=== PATIENT | male | born 1940 | race Caucasian/White ===

== ENCOUNTER 2016-03-12 08:46 | Inpatient (IN) | payer OTHER ==
[2016-03-12] MEDS ORDERED: ALBUTEROL SO4 2.5/IPRATROPIUM 0.5 INH SOL 3 ML VIAL.NEB. NEB ONE (08:49)
[2016-03-12] MEDS: ALBUTEROL SO4 2.5/IPRATROPIUM 0.5 INH SOL 3 ML VIAL.NEB. NEB SCH ×4 (08:50→09:35)
--- NOTE | 2016-03-12 08:57 | PDOC ---
History of Present Illness - General Chief Complaint: Shortness of Breath Stated Complaint: SOB Time Seen by Provider: 03/12/16 08:49 History Source: Patient, Family Exam Limitations: No Limitations - History of Present Illness Initial Comments: CHIEF COMPLAINT: 75 y/o afebrile male with PMH HTN, HLD, CHF, asthma s/p pacemaker and defibrillator c/o increased dyspnea on exertion, orthopnea and LE swelling for the past 1 week. HISTORY OF PRESENT ILLNESS: The patient states that his legs have become more swollen over the past 1 week. Last saturday, his Strip Feeder increased his Lasix dose but it doesn't seem to be helping. He states last night he couldn't sleep unless he sat up. He denies f/c, n/v/d, LINARES, CP, abd pain, back pain, hematuria, dysuria. Vital signs on arrival are within normal limits. REVIEW OF SYSTEMS: GENERAL/CONSTITUTIONAL: No fever/chills. No weakness. No weight change. HEAD, EYES, EARS, NOSE AND THROAT: No change in vision. No ear pain or discharge. No sore throat. CARDIOVASCULAR: No chest pain. +SOB and orthopnea RESPIRATORY: No cough, wheezing, or hemoptysis. GASTROINTESTINAL: See history of present illness. GENITOURINARY: No dysuria, frequency, or change in urination. MUSCULOSKELETAL: +LE swelling. No neck or back pain. SKIN: No rash or easy bruising. NEUROLOGIC: No headache, vertigo, loss of consciousness, or loss of sensation. PSYCHIATRIC: No depression or anxiety. ENDOCRINE: No increased thirst. No abnormal weight change. HEMATOLOGIC/LYMPHATIC: No anemia, easy bleeding, or history of blood clots. ALLERGIC/IMMUNOLOGIC: No hives or skin allergy. No latex allergy. PHYSICAL EXAM: GENERAL: The patient is awake, alert, and fully oriented, in moderate respiratory distress, sitting up in bed, speaking 4-5 words per breath. HEAD: Normal with no signs of trauma. ENT: Pupils equal, round and reactive to light, extraocular movements intact, sclera anicteric, conjunctiva clear. Neck supple. LUNGS: Diffuse expiratory wheezing with crackles in b/l bases. Accessory muscle use. CV: RRR, S1/S2, no MRG. Cap refill < 2 sec. ABDOMEN: Soft, non-distended, non-tender even to deep palpation, no hepatomegaly or splenomegaly, no masses. EXTREMITIES: Normal range of motion. 2+ brawny pitting edema b/l LEs up to knees. NEUROLOGICAL: Normal speech, normal gait. CN II-XII grossly intact. PSYCH: Normal mood, normal affect. SKIN: Warm, dry, normal turgor, no rashes or lesions noted. Past History - Past Medical History Allergies/Adverse Reactions: Allergies Allergy/AdvReac Type Severity Reaction Status Date / Time No Known Allergies Allergy Verified 03/12/16 09:01 Home Medications: Ambulatory Orders Amiodarone HCl [Cordarone -] 200 mg PO DAILY 06/11/15 Atorvastatin Ca [Lipitor -] 20 mg PO ASDIR 06/11/15 Carvedilol 3.125 mg PO DAILY 06/11/15 Digoxin [Lanoxin -] 0.125 mg PO DAILY 06/11/15 Fluticasone Propionate [Flovent Diskus] 100 mcg IH DAILY 06/11/15 Furosemide 40 mg PO DAILY 06/11/15 Warfarin Sodium [Coumadin] 2 mg PO ASDIR 06/11/15 Aspirin [ASA -] 81 mg PO DAILY 07/04/15 Albuterol Sulfate Inhaler - [Ventolin Hfa Inhaler -] 1 - 2 inh PO QID 03/12/16 Famotidine 20 mg PO DAILY 03/12/16 Asthma: Yes Cardiac Disorders: Yes (CHF,PACEMAKER/DEFIBRILLATOR) HTN: Yes Hypercholesterolemia: Yes - Surgical History Cardiac Surgery: Yes (PACEMAKER/DEFIBRILLATOR INSERTION) - Psycho/Social/Smoking Cessation Hx Suicidal Ideation: No Smoking History: Never smoked Have you smoked in the past 12 months: No Hx Alcohol Use: No Drug/Substance Use Hx: No Substance Use Type: None Heart Score/ECG Review - ECG Intrepretation Comment:: Twelve-lead EKG was performed and reviewed by Dr. Velázquez. Demand pacemaker. Undetermined rhythm Impression: Abnormal twelve-lead EKG ED Treatment Course - LABORATORY CBC & Chemistry Diagram: 03/12/16 08:53 03/12/16 08:53 - RADIOLOGY Radiology Studies Ordered: Category Date Time Status CHEST X-RAY PORTABLE* [RAD] Stat Radiology 03/12/16 08:55 Ordered Medical Decision Making - Medical Decision Making A/P: 75 y/o male with CHF exacerbation and asthma. Plan is as follows: 1. EKG 2. CXR 3. Labs 4. Duoneb CXR IMRPESSION: SLight improvement at the lung bases; otherwise stable. Pt was seen in the ER by Dr. Kilpatrick who has already put in orders for lasix. Will admit to [facility]. Dr. Vincent returned call and accepts admission. WIll admit to tele Patient and family aware *DC/Admit/Observation/Transfer Diagnosis at time of Disposition: CHF exacerbation, Orthopnea, Asthma, Elevated liver enzymes, Elevated troponin - Discharge Dispostion Admit: Yes - Referrals Referrals: John Sahu MD [Primary Care Provider] -
[2016-03-12 09:13] LABS: BASOPHIL 0.5 % (0-2.0); EOSINOPHIL 0.2 % (0-4.5); MCH 28.7 pg (25.7-33.7); MCHC 32.3 g/dl (32.0-35.9); MEAN CELL VOLUME 88.8 fl (80-96); MEAN PLT VOLUME 10.1 fl (7.5-11.1); NEUTROPHILS 60.7 % (42.8-82.8); PLATELET COUNT 153 K/MM3 (134-434); RDW 18.7 % (11.9-15.9); WHITE BLOOD COUNT 8.3 K/mm3 (4.0-10.0)
[2016-03-12 09:32] LABS: ALBUMIN 3.5 g/dl (3.4-5.0); BILIRUBIN,TOTAL 1.5 mg/dL (0.2-1.0); CALCIUM 8.9 mg/dL (8.5-10.1); CREATININE 1.3 mg/dL (0.7-1.3); TOT PROT 7.8 g/dl (6.4-8.2)
[2016-03-12 09:44] LABS: DIGOXIN LEVEL 0.5888 ng/ml (0.8-2.0); TROPONIN I 0.33 ng/ml (0.00-0.05)
[2016-03-12] MEDS ORDERED: FUROSEMIDE 40 MG/4 ML INJECTABLE VIAL IVPUSH ONE (09:50)
--- NOTE | 2016-03-12 09:54 | PN ---
Progress Note (short form) - Note Progress Note: Cardiology Consult Dictated Acute on chronic systolic CHF, underlying non-ischemic CM, s/p ICD Severe s/p TAVR Chronic AF on coumadin Mitral regurgitation Plan: Admit to tele for decompensated systolic CHF. Echo. Serial cardiac enzymes. Lasix 40mg IV daily. Strict Is/Os, daily weights. Maintain INR 2-3.
[2016-03-12] MEDS ORDERED: CARVEDILOL 3.125 MG TABLET (FP) ONE (10:06)
[2016-03-12] MEDS ORDERED: DIGOXIN 0.125 MG TABLET (FP) ONE (10:06)
[2016-03-12] MEDS ORDERED: ASPIRIN 81 MG CHEWABLE TABLETS ONE (10:06)
[2016-03-12] MEDS ORDERED: FUROSEMIDE 40 MG/4 ML INJECTABLE VIAL ONE (10:07)
[2016-03-12] MEDS ORDERED: AMIODARONE HCL 200 MG TABLET (FP) ONE (10:07)
[2016-03-12] MEDS: AMIODARONE HCL 200 MG TABLET (FP) PO SCH (10:09)
[2016-03-12] MEDS: ASPIRIN 81 MG CHEWABLE TABLETS PO SCH (10:09)
[2016-03-12] MEDS: CARVEDILOL 3.125 MG TABLET (FP) PO SCH ×2 (10:09→22:41)
[2016-03-12] MEDS: DIGOXIN 0.125 MG TABLET (FP) PO SCH (10:09)
[2016-03-12 10:38] LABS: PROTHROMBIN TIME (PATIENT) 49.4 SEC (9.98-11.88)
[2016-03-12 10:48] LABS: INR 4.36 (0.82-1.09)
--- NOTE | 2016-03-12 11:03 | CONS ---
CARDIOLOGY CONSULTATION DATE OF CONSULTATION: 03/12/2016 REQUESTED BY: Lorie Velázquez MD in the emergency department HISTORY: The patient is a 75-year-old man, my office patient, with chronic systolic CHF secondary to non-ischemic cardiomyopathy, severe aortic stenosis status post TAVR, history of ICD, chronic atrial fibrillation on Coumadin, mitral regurgitation who presents to the emergency room with several days of worsening bilateral lower extremity edema and shortness of breath with significant PND last evening. In the ER, he has marked edema bilaterally to the knee, which is worse than on his office examination earlier last week when I had increased his PO Lasix. He is accompanied by his son who reports that the patient has had excessive sodium during the holiday season. The patient denies chest pain, palpitations, ICD discharges, fevers, chills, cough. PAST MEDICAL HISTORY: His past medical history is as above and also includes: 1. Mild renal insufficiency 2. He was left with [id number] mitral regurgitation after his TAVR. ALLERGIES: He has no known drug allergies. CURRENT HOME MEDICATIONS: 1. Warfarin 2 mg q h.s. 2. Furosemide 40 mg daily 3. Digoxin 0.125 daily 4. Atorvastatin 20 mg q h.s. 5. Aspirin 81 mg daily 6. Amiodarone 200 q h.s. 7. Famotidine 20 mg daily 8. Carvedilol 3.125 b.i.d. 9. Albuterol nebulizer as needed 10. Flovent 100 mcg in halation daily FAMILY HISTORY: Non-contributory to this presentation SOCIAL HISTORY: Patient lives alone. Has 2 sons who look after him. He drinks wine daily, approximately 2 glasses. He denies smoking or illicit drugs. PHYSICAL EXAM: Vital signs: Afebrile, temperature of 96.9. Initial blood pressure was elevated at 134/108, has not had any home medications yet. Weight 200 pounds. O2 saturation 99 on room air. General: In general, he appears edematous and fatigued. He is anicteric. He has JVD elevation. Heart: Heart was regular with a 2/6 systolic murmur that was best audible at the apex. Chest: Diffuse, bilateral rales, assisted up. Abdomen: Distended, non-tender. Extremities: Extremities with 2+ pitting edema to the level of the knee Chest x-ray: Pending. LABS: INR is pending. White count 8.3, hematocrit 36, platelets 153, sodium 132, consistent with volume overload, potassium 3.9, BUN 34, creatinine 1.3. AST 72 , ALT 42, CK 427. Troponin 0.3, BNP 3412. Digoxin level is 0.6. ASSESSMENT: 1. Chronic systolic CHF with acute exacerbation, non-ischemic cardiomyopathy , history of ICD - likely precipitated by dietary indiscretion. 2. Chronic atrial fibrillation, on Coumadin. 3. Severe aortic stenosis, status post transcatheter aortic valve replacement (TAVR). 4. [id number] residual mitral regurgitation. PLAN: 1. Admit to telemetry for observation of atrial fibrillation rates and to exclude rapid atrial fibrillation as the cause of his decompensation. 2. Serial cardiac enzymes. 3. Echocardiogram to be repeated in a.m. 4. Change Lasix to 40 mg IV daily with careful monitoring of renal function. 5. Continue Coreg, digoxin at home dosages. Patient has not been on lisinopril due to relatively low blood pressures chronically.He is on amiodarone for prior long runs of NSVT which subsided on amiodarone. 6. Continue Aspirin 81 mg daily. Suspect the low elevation in troponin is due to decompensated congestive heart failure rather than from an acute [place]. EKG is currently pending. 7. Low sodium diet, strict ins and outs and daily weights. Thank you for the consultation. CIERRA VALENZUELA M.D. ANA [id number] MTDD
[2016-03-12 15:05] LABS: TROPONIN I 0.33 ng/ml (0.00-0.05)
[2016-03-12 16:26] VITALS: BMI 32.3
[2016-03-12 20:58] LABS: TROPONIN I 0.32 ng/ml (0.00-0.05)
[2016-03-12] MEDS: ALBUTEROL SO4 2.5/IPRATROPIUM 0.5 INH SOL 3 ML VIAL.NEB. NEB PRN (22:30)
[2016-03-12] MEDS: ATORVASTATIN CA 20 MG TABLET (FP) PO SCH (22:41)
[2016-03-12] MEDS ORDERED: PT OWN MED DRAWER 7, Y5N ONE (22:43)
--- NOTE | 2016-03-13 02:27 | HP ---
Admitting History and Physical - Admission History of Present Illness: Pt is a 75 y/o afebrile male with PMH HTN, HLD, CHF, asthma s/p pacemaker and defibrillator c/o increased dyspnea on exertion, orthopnea and LE swelling for the past 1 week. The patient states that his legs have become more swollen over the past 1 week. Last saturday, his Sap Bi Developer increased his Lasix dose but it doesn't seem to be helping. He states last night he couldn't sleep unless he sat up. He denies f/c, n/v/d, LINARES, CP, abd pain, back pain, hematuria, dysuria. - Past Medical History Cardiovascular: Yes: AFIB, Aortic Stenosis, CAD, CHF, HTN, Hyperlipdemia, Mitral Insufficiency, Murmur, Pulmonary Hypertension, Other (TR, PPM/ICD, LV dysfunction, non-ischemic cardiomyopathy) Pulmonary: Yes: Asthma Renal/: Yes: Renal Inusuff - Past Surgical History Past Surgical History: Yes: AICD, Permanent Pacemaker - Smoking History Smoking history: Never smoked Have you smoked in the past 12 months: No - Alcohol/Substance Use Hx Alcohol Use: No - Social History ADL: Independent History of Recent Travel: No Home Medications - Allergies Allergies/Adverse Reactions: Allergies Allergy/AdvReac Type Severity Reaction Status Date / Time No Known Allergies Allergy Verified 03/12/16 09:01 - Home Medications Home Medications: Ambulatory Orders Amiodarone HCl [Cordarone -] 200 mg PO DAILY 06/11/15 Atorvastatin Ca [Lipitor] 20 mg PO ASDIR 06/11/15 Carvedilol 3.125 mg PO DAILY 06/11/15 Digoxin [Lanoxin -] 0.125 mg PO DAILY 06/11/15 Fluticasone Propionate [Flovent Diskus] 100 mcg IH DAILY 06/11/15 Warfarin Sodium [Coumadin] 2 mg PO ASDIR 06/11/15 Aspirin [ASA -] 81 mg PO DAILY 07/04/15 Albuterol Sulfate Inhaler - [Ventolin HFA Inhaler -] 1 - 2 inh PO QID 03/12/16 Famotidine 20 mg PO DAILY 03/12/16 Amiodarone HCl [Cordarone -] 200 mg PO DAILY tablet 03/21/16 Atorvastatin Ca [Lipitor] 20 mg PO HS tablet 01/04/17 Carvedilol [Coreg -] 3.125 mg PO BID tablet 03/21/16 Digoxin [Lanoxin -] 0.125 mg PO DAILY tablet 03/21/16 Furosemide [Lasix -] 80 mg PO DAILY #30 tablet 03/21/16 Ramipril [Altace] 2.5 mg PO DAILY #30 capsule 03/21/16 Family Disease History - Family Disease History Family History: Unremarkable Physical Examination Vital Signs: Vital Signs Temperature 97.5 F L 03/13/16 02:00 Pulse Rate 85 03/13/16 02:00 Respiratory Rate 18 03/13/16 02:00 Blood Pressure 113/64 03/13/16 02:00 O2 Sat by Pulse Oximetry (%) 98 03/12/16 21:00 Constitutional: Yes: Well Nourished Eyes: Yes: WNL HENT: Yes: WNL Neck: Yes: Supple Cardiovascular: Yes: WNL, Regular Rate and Rhythm Respiratory: Yes: WNL, Regular, CTA Bilaterally Gastrointestinal: Yes: WNL, Normal Bowel Sounds, Soft Musculoskeletal: Yes: WNL Extremities: Yes: WNL Edema: No Problem List - Problems (1) Afib Code(s): I48.91 - UNSPECIFIED ATRIAL FIBRILLATION (2) Asthma Code(s): J45.909 - UNSPECIFIED ASTHMA, UNCOMPLICATED (3) CHF exacerbation Code(s): I50.9 - HEART FAILURE, UNSPECIFIED (4) Elevated troponin Code(s): R79.89 - OTHER SPECIFIED ABNORMAL FINDINGS OF BLOOD CHEMISTRY (5) Hyperlipemia Code(s): E78.5 - HYPERLIPIDEMIA, UNSPECIFIED (6) Hypertension Code(s): I10 - ESSENTIAL (PRIMARY) HYPERTENSION
[2016-03-13] MEDS: ALBUTEROL SO4 2.5/IPRATROPIUM 0.5 INH SOL 3 ML VIAL.NEB. NEB PRN ×3 (05:54→22:35)
[2016-03-13 07:47] LABS: BASOPHIL 0.5 % (0-2.0); EOSINOPHIL 0.9 % (0-4.5); MCH 28.6 pg (25.7-33.7); MCHC 32.4 g/dl (32.0-35.9); MEAN CELL VOLUME 88.3 fl (80-96); MEAN PLT VOLUME 10.2 fl (7.5-11.1); NEUTROPHILS 59.5 % (42.8-82.8); PLATELET COUNT 138 K/MM3 (134-434); RDW 18.4 % (11.9-15.9); WHITE BLOOD COUNT 5.5 K/mm3 (4.0-10.0)
[2016-03-13 07:55] LABS: INR 3.26 (0.82-1.09); PROTHROMBIN TIME (PATIENT) 36.7 SEC (9.98-11.88)
[2016-03-13 08:40] LABS: ALBUMIN 3.2 g/dl (3.4-5.0); ANION GAP 10 (8-16); CALCIUM 8.5 mg/dL (8.5-10.1); CO2 32 mmol/L (21-32); GLUCOSE,RANDOM 79 mg/dL (74-106); MAGNESIUM 2.3 mg/dL (1.8-2.4)
[2016-03-13 08:43] LABS: ALK PHOS 271 U/L (45-117); BILIRUBIN,TOTAL 1.8 mg/dL (0.2-1.0); CREATININE 1.1 mg/dL (0.7-1.3); SGPT/ALT 37 U/L (12-78); TOT PROT 7.1 g/dl (6.4-8.2)
[2016-03-13 08:45] LABS: SGOT/AST 74 U/L (15-37)
--- NOTE | 2016-03-13 09:19 | PN ---
Progress Note, Physician Chief Complaint: sitting in chair feels slightly improved - Current Medication List Current Medications: Active Medications Albuterol/Ipratropium (Duoneb -) 1 amp NEB Q4H PRN PRN Reason: SHORTNESS OF BREATH Last Admin: 03/13/16 05:54 Dose: 1 amp Amiodarone HCl (Cordarone -) 200 mg PO DAILY [facility] Last Admin: 03/12/16 10:09 Dose: 200 mg Aspirin (Asa -) 81 mg PO DAILY [facility] Last Admin: 03/12/16 10:09 Dose: 81 mg Atorvastatin Calcium (Lipitor -) 20 mg PO HS [facility] Last Admin: 03/12/16 22:41 Dose: 20 mg Carvedilol (Coreg -) 3.125 mg PO BID [facility] Last Admin: 03/12/16 22:41 Dose: 3.125 mg Digoxin (Lanoxin -) 0.125 mg PO DAILY [facility] Last Admin: 03/12/16 10:09 Dose: 0.125 mg Furosemide (Lasix Injection -) 40 mg IVPUSH DAILY [facility] Mometasone Furoate (Asmanex 220mcg -) 1 puff IH HS [facility] Ranitidine HCl (Zantac -) 150 mg PO DAILY [facility] - Objective Vital Signs: Vital Signs Temperature 97.6 F 03/13/16 06:00 Pulse Rate 77 03/13/16 06:00 Respiratory Rate 18 03/13/16 06:00 Blood Pressure 98/66 03/13/16 06:00 O2 Sat by Pulse Oximetry (%) 98 03/12/16 21:00 Constitutional: Yes: No Distress Cardiovascular: Yes: Regular Rate and Rhythm Respiratory: Yes: Other (bibasilar rales persist) Gastrointestinal: Yes: Soft (distended) Edema: Yes Edema: LLE: 2+, RLE: 2+ Neurological: Yes: Alert, Oriented Labs: CBC, BMP 03/13/16 06:00 03/13/16 06:00 INR, PTT INR 3.26 (0.82-1.09) H 03/13/16 06:00 Laboratory Tests 03/12/16 03/12/16 03/12/16 08:53 14:15 20:15 WBC Hgb Plt Count INR Sodium Potassium BUN Creatinine Magnesium Troponin I 0.33 H 0.32 H Digoxin 0.5888 L 03/13/16 03/13/16 03/13/16 06:00 06:00 06:00 WBC 5.5 D Hgb 10.7 L Plt Count 138 INR 3.26 H Sodium 133 L Potassium 4.3 BUN 32 H Creatinine 1.1 Magnesium 2.3 D Troponin I Digoxin - ....Imaging EKG: Image Reviewed (TELE: occasional paced beats, no sig V ectopy) Assessment/Plan Acute on chronic systolic CHF, underlying non-ischemic CM, s/p ICD Severe s/p TAVR Chronic AF on coumadin Mitral regurgitation Plan: Tele for decompensated systolic CHF: thus far no significant ventricular ectopy nor evidence of AF w/ RVR Echo today to re-assess degree of MR Serial cardiac enzymes have shown mild elevation in TnI likely due to decompensated CHF Increase Lasix to 40mg IV BID Strict Is/Os, daily weights. Maintain INR 2-3, holding coumadin as INR supratherapeutic
[2016-03-13] MEDS ORDERED: FUROSEMIDE 40 MG/4 ML INJECTABLE VIAL IVPUSH SCH (10:00)
[2016-03-13] MEDS: ASPIRIN 81 MG CHEWABLE TABLETS PO SCH (10:30)
[2016-03-13] MEDS: RANITIDINE HCL 150 MG TABLET (FP) PO SCH (10:30)
[2016-03-13] MEDS: AMIODARONE HCL 200 MG TABLET (FP) PO SCH (10:30)
[2016-03-13] MEDS: DIGOXIN 0.125 MG TABLET (FP) PO SCH (10:30)
[2016-03-13] MEDS: CARVEDILOL 3.125 MG TABLET (FP) PO SCH ×2 (10:30→21:54)
[2016-03-13] MEDS: FUROSEMIDE 40 MG/4 ML INJECTABLE VIAL IVPUSH SCH (15:50)
[2016-03-13] MEDS ORDERED: PT OWN MED DRAWER 7, Y5N ONE (21:53)
[2016-03-13] MEDS: MOMETASONE FUROATE 220 MCG/IH INHALER IH SCH (21:55)
[2016-03-13] MEDS: ATORVASTATIN CA 20 MG TABLET (FP) PO SCH (21:55)
[2016-03-14] MEDS: ALBUTEROL SO4 2.5/IPRATROPIUM 0.5 INH SOL 3 ML VIAL.NEB. NEB PRN (06:00)
[2016-03-14] MEDS: FUROSEMIDE 40 MG/4 ML INJECTABLE VIAL IVPUSH SCH ×2 (06:18→16:06)
[2016-03-14 08:25] LABS: INR 2.87 (0.82-1.09); PROTHROMBIN TIME (PATIENT) 32.2 SEC (9.98-11.88)
--- NOTE | 2016-03-14 08:49 | PN ---
Progress Note, Physician Chief Complaint: feeling better TELE: PAF, rare VPCs and occasional paced rhythm Echo: severe biventicular dysfunction Moderate to severe MR Moderate PHTN - Current Medication List Current Medications: Active Medications Albuterol/Ipratropium (Duoneb -) 1 amp NEB Q4H PRN PRN Reason: SHORTNESS OF BREATH Last Admin: 03/14/16 06:00 Dose: 1 amp Amiodarone HCl (Cordarone -) 200 mg PO DAILY [facility] Last Admin: 03/13/16 10:30 Dose: 200 mg Aspirin (Asa -) 81 mg PO DAILY [facility] Last Admin: 03/13/16 10:30 Dose: 81 mg Atorvastatin Calcium (Lipitor -) 20 mg PO HS [facility] Last Admin: 03/13/16 21:55 Dose: 20 mg Carvedilol (Coreg -) 3.125 mg PO BID [facility] Last Admin: 03/13/16 21:54 Dose: 3.125 mg Digoxin (Lanoxin -) 0.125 mg PO DAILY [facility] Last Admin: 03/13/16 10:30 Dose: 0.125 mg Furosemide (Lasix Injection -) 40 mg IVPUSH BID@0600,1400 [facility] Last Admin: 03/14/16 06:18 Dose: 40 mg Mometasone Furoate (Asmanex 220mcg -) 1 puff IH HS [facility] Last Admin: 03/13/16 21:55 Dose: 1 puff Ranitidine HCl (Zantac -) 150 mg PO DAILY [facility] Last Admin: 03/13/16 10:30 Dose: 150 mg - Objective Vital Signs: Vital Signs Temperature 97.8 F 03/14/16 06:00 Pulse Rate 72 03/14/16 06:00 Respiratory Rate 20 03/14/16 06:00 Blood Pressure 110/71 03/14/16 06:00 O2 Sat by Pulse Oximetry (%) 96 03/13/16 21:00 Constitutional: Yes: No Distress Eyes: Yes: Conjunctiva Clear Cardiovascular: Yes: Pulse Irregular Respiratory: Yes: Other (bibasilar rales 1/3 up) Gastrointestinal: Yes: Soft Edema: Yes Edema: LLE: 2+, RLE: 2+ Neurological: Yes: Alert Labs: CBC, BMP 03/13/16 06:00 INR, PTT INR 2.87 (0.82-1.09) H 03/14/16 06:30 Laboratory Tests 03/13/16 03/13/16 03/14/16 06:00 06:00 06:30 WBC 5.5 D Hgb 10.7 L Plt Count 138 INR 2.87 H Potassium 4.3 BUN 32 H Creatinine 1.1 03/14/16 06:30 WBC Hgb Plt Count INR Potassium BUN Pending Creatinine Pending - ....Imaging EKG: Image Reviewed Assessment/Plan Assessment/Plan Acute on chronic systolic CHF, underlying non-ischemic CM, s/p ICD Severe s/p TAVR Chronic AF on coumadin Mitral regurgitation Plan: Tele for decompensated systolic CHF: thus far no significant ventricular ectopy nor evidence of AF w/ RVR Echo noted, as charted above. Serial cardiac enzymes have shown mild elevation in TnI likely due to decompensated CHF Continue Lasix 40mg IV BID Strict Is/Os, daily weights. Maintain INR 2-3
[2016-03-14] MEDS: RANITIDINE HCL 150 MG TABLET (FP) PO SCH (09:20)
[2016-03-14] MEDS: AMIODARONE HCL 200 MG TABLET (FP) PO SCH (09:20)
[2016-03-14] MEDS: ASPIRIN 81 MG CHEWABLE TABLETS PO SCH (09:20)
[2016-03-14] MEDS: DIGOXIN 0.125 MG TABLET (FP) PO SCH (09:20)
[2016-03-14] MEDS: CARVEDILOL 3.125 MG TABLET (FP) PO SCH ×2 (09:20→21:49)
[2016-03-14 09:31] LABS: CREATININE 1.2 mg/dL (0.7-1.3); MAGNESIUM 2.2 mg/dL (1.8-2.4)
[2016-03-14 14:25] LABS: URINE APPEARANCE CLEAR; URINE BILIRUBIN NEGATIVE (NEGATIVE); URINE BLOOD NEGATIVE (NEGATIVE); URINE COLOR LTYELLOW; URINE GLUCOSE (UA) NEGATIVE (NEGATIVE); URINE KETONE NEGATIVE (NEGATIVE); URINE LEUK ESTERASE NEGATIVE (NEGATIVE); URINE NITRITE NEGATIVE (NEGATIVE); URINE PROTEIN NEGATIVE (NEGATIVE); URINE UROBILINOGEN 2.0 E.U/dl E.U./dl (0.2-1.0)
--- NOTE | 2016-03-14 16:53 | EKG ---
Test Reason : Blood Pressure : / mmHG Vent. Rate : 083 BPM Atrial Rate : 093 BPM P-R Int : 000 ms QRS Dur : 132 ms QT Int : 440 ms P-R-T Axes : 000 -12 057 degrees QTc Int : 517 ms DEMAND PACEMAKER; INTERPRETATION IS BASED ON INTRINSIC RHYTHM UNDETERMINED RHYTHM NON-SPECIFIC INTRA-VENTRICULAR CONDUCTION BLOCK POSSIBLE INFERIOR INFARCT (CITED ON OR BEFORE CANNOT RULE OUT ANTERIOR INFARCT (CITED ON OR BEFORE ABNORMAL ECG WHEN COMPARED WITH ECG OF 05-JUL-2015 09:07, CURRENT UNDETERMINED RHYTHM PRECLUDES RHYTHM COMPARISON, NEEDS REVIEW Confirmed by KARRIE JAIN MD ([id number]) on 03/14/2016 4:53:31 PM Referred By: Overread By: KARRIE JAIN MD
[2016-03-14] MEDS: WARFARIN NA 2 MG TABLET (UD) PO SCH (17:47)
--- NOTE | 2016-03-14 18:35 | PN ---
Progress Note, Physician History of Present Illness: No new changes - Current Medication List Current Medications: Active Medications Albuterol/Ipratropium (Duoneb -) 1 amp NEB Q4H PRN PRN Reason: SHORTNESS OF BREATH Last Admin: 03/14/16 06:00 Dose: 1 amp Amiodarone HCl (Cordarone -) 200 mg PO DAILY [facility] Last Admin: 03/14/16 09:20 Dose: 200 mg Aspirin (Asa -) 81 mg PO DAILY [facility] Last Admin: 03/14/16 09:20 Dose: 81 mg Atorvastatin Calcium (Lipitor -) 20 mg PO HS [facility] Last Admin: 03/13/16 21:55 Dose: 20 mg Carvedilol (Coreg -) 3.125 mg PO BID [facility] Last Admin: 03/14/16 09:20 Dose: 3.125 mg Digoxin (Lanoxin -) 0.125 mg PO DAILY [facility] Last Admin: 03/14/16 09:20 Dose: 0.125 mg Furosemide (Lasix Injection -) 40 mg IVPUSH BID@0600,1400 [facility] Last Admin: 03/14/16 16:06 Dose: 40 mg Mometasone Furoate (Asmanex 220mcg -) 1 puff IH [facility] Last Admin: 03/13/16 21:55 Dose: 1 puff Ramipril (Altace -) 2.5 mg PO DAILY [facility] Ranitidine HCl (Zantac -) 150 mg PO DAILY [facility] Last Admin: 03/14/16 09:20 Dose: 150 mg Warfarin Sodium (Coumadin -) 4 mg PO DAILY@1800 [facility] Last Admin: 03/14/16 17:47 Dose: 4 mg - Objective Vital Signs: Vital Signs Temperature 97.5 F L 03/14/16 14:14 Pulse Rate 76 03/14/16 14:14 Respiratory Rate 18 03/14/16 14:14 Blood Pressure 101/66 03/14/16 14:14 O2 Sat by Pulse Oximetry (%) 98 03/14/16 12:03 Constitutional: Yes: Well Nourished Cardiovascular: Yes: Pulse Irregular Respiratory: Yes: Rales Gastrointestinal: Yes: WNL, Normal Bowel Sounds, Abdomen, Obese Edema: LLE: 2+, RLE: 2+ Labs: CBC, BMP 03/13/16 06:00 03/14/16 06:30 INR, PTT INR 2.87 (0.82-1.09) H 03/14/16 06:30 Problem List - Problems (1) CHF exacerbation Assessment/Plan: 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 Cont IV lasix Monitor electrolytes Code(s): I50.9 - HEART FAILURE, UNSPECIFIED (2) Elevated troponin Assessment/Plan: Due to demand ischemia from chf Code(s): R79.89 - OTHER SPECIFIED ABNORMAL FINDINGS OF BLOOD CHEMISTRY (3) CRI (chronic renal insufficiency) Assessment/Plan: Monitor labs Code(s): N18.9 - CHRONIC KIDNEY DISEASE, UNSPECIFIED (4) Edema due to congestive heart failure Code(s): R60.9 - EDEMA, UNSPECIFIED I50.9 - HEART FAILURE, UNSPECIFIED (5) Hyperlipemia Code(s): E78.5 - HYPERLIPIDEMIA, UNSPECIFIED (6) Hypertension Code(s): I10 - ESSENTIAL (PRIMARY) HYPERTENSION (7) Afib Code(s): I48.91 - UNSPECIFIED ATRIAL FIBRILLATION
[2016-03-14] MEDS: MOMETASONE FUROATE 220 MCG/IH INHALER IH SCH (21:49)
[2016-03-14] MEDS: ATORVASTATIN CA 20 MG TABLET (FP) PO SCH (21:49)
[2016-03-15] MEDS: FUROSEMIDE 40 MG/4 ML INJECTABLE VIAL IVPUSH SCH ×2 (05:47→15:13)
[2016-03-15 07:44] LABS: BASOPHIL 0.7 % (0-2.0); EOSINOPHIL 1.2 % (0-4.5); MCHC 32.4 g/dl (32.0-35.9); MEAN CELL VOLUME 89.4 fl (80-96); MEAN PLT VOLUME 9.8 fl (7.5-11.1); NEUTROPHILS 60.6 % (42.8-82.8); PLATELET COUNT 146 K/MM3 (134-434); RDW 18.4 % (11.9-15.9); WHITE BLOOD COUNT 5.5 K/mm3 (4.0-10.0)
[2016-03-15 07:58] LABS: INR 2.61 (0.82-1.09); PROTHROMBIN TIME (PATIENT) 29.3 SEC (9.98-11.88)
[2016-03-15 08:31] LABS: ALBUMIN 3.4 g/dl (3.4-5.0); ALK PHOS 312 U/L (45-117); ANION GAP 6 (8-16); CALCIUM 8.9 mg/dL (8.5-10.1); CO2 37 mmol/L (21-32); CREATININE 1.1 mg/dL (0.7-1.3); GLUCOSE,RANDOM 78 mg/dL (74-106); MAGNESIUM 2.1 mg/dL (1.8-2.4); SGOT/AST 62 U/L (15-37); SGPT/ALT 40 U/L (12-78); TOT PROT 7.3 g/dl (6.4-8.2)
--- NOTE | 2016-03-15 11:01 | PN ---
Progress Note, Physician History of Present Illness: seen and examined today in nad. still feeling sob and still has sig edema. no overnight events. no new complaints. - Current Medication List Current Medications: Active Medications Albuterol/Ipratropium (Duoneb -) 1 amp NEB Q4H PRN PRN Reason: SHORTNESS OF BREATH Last Admin: 03/14/16 06:00 Dose: 1 amp Amiodarone HCl (Cordarone -) 200 mg PO DAILY [facility] Last Admin: 03/14/16 09:20 Dose: 200 mg Aspirin (Asa -) 81 mg PO DAILY [facility] Last Admin: 03/14/16 09:20 Dose: 81 mg Atorvastatin Calcium (Lipitor -) 20 mg PO HS [facility] Last Admin: 03/14/16 21:49 Dose: 20 mg Carvedilol (Coreg -) 3.125 mg PO BID [facility] Last Admin: 03/14/16 21:49 Dose: 3.125 mg Digoxin (Lanoxin -) 0.125 mg PO DAILY [facility] Last Admin: 03/14/16 09:20 Dose: 0.125 mg Furosemide (Lasix Injection -) 40 mg IVPUSH BID@0600,1400 [facility] Last Admin: 03/15/16 05:47 Dose: 40 mg Mometasone Furoate (Asmanex 220mcg -) 1 puff IH HS [facility] Last Admin: 03/14/16 21:49 Dose: 1 puff Ramipril (Altace -) 2.5 mg PO DAILY [facility] Ranitidine HCl (Zantac -) 150 mg PO DAILY [facility] Last Admin: 03/14/16 09:20 Dose: 150 mg Warfarin Sodium (Coumadin -) 4 mg PO DAILY@1800 [facility] Last Admin: 03/14/16 17:47 Dose: 4 mg - Objective Vital Signs: Vital Signs Temperature 98.2 F 03/15/16 05:54 Pulse Rate 67 03/15/16 05:54 Respiratory Rate 17 03/15/16 05:54 Blood Pressure 116/80 03/15/16 05:54 O2 Sat by Pulse Oximetry (%) 98 03/14/16 21:00 Constitutional: Yes: Well Nourished, No Distress, Calm Eyes: Yes: WNL, Conjunctiva Clear, EOM Intact, PERRL HENT: Yes: WNL, Atraumatic, Normocephalic Neck: Yes: WNL, Supple, Trachea Midline Cardiovascular: Yes: Regular Rate and Rhythm, Murmur, S1, S2. No: Bradycardia, Tachycardia, Pulse Irregular, Bruit, JVD, Gallop, Rub, S3, S4, Varicosities Respiratory: Yes: Regular, Diminished, On Nasal O2, Rales, Rhonchi, Wheezes Gastrointestinal: Yes: WNL, Normal Bowel Sounds, Soft. No: Distention, Tenderness Edema: Yes Edema: LLE: 2+, RLE: 2+ Peripheral Pulses WNL: Yes Peripheral Pulses: Left Doralis Pedis: 2+, Right Dorsalis Pedis: 2+ Integumentary: Yes: WNL Neurological: Yes: Alert, Oriented, Cran Nerves II-XII Intact Psychiatric: Yes: Alert, Oriented Labs: CBC, BMP 03/15/16 05:35 03/15/16 05:35 INR, PTT INR 2.61 (0.82-1.09) H 03/15/16 05:35 - ....Imaging Chest X-ray: Report Reviewed, Image Reviewed EKG: Report Reviewed, Image Reviewed Other: Report Reviewed, Image Reviewed (tele-nsr, AV paced) Assessment/Plan Acute on chronic systolic CHF, underlying non-ischemic CM, s/p ICD Severe s/p TAVR Chronic AF on coumadin Mitral regurgitation Plan: I/Os slightly negative, weight is unchanged, still significantly volume overloaded Cont Lasix 40mg IV bid for now Monitor urine output, if not significantly net negative fluid balance today will need to increase lasix dose Mild troponin elevation likely secondary to acute chf No Afib with RVR thus far on tele Cont coumadin for goal INR 2-3
[2016-03-15] MEDS: RANITIDINE HCL 150 MG TABLET (FP) PO SCH (11:06)
[2016-03-15] MEDS: AMIODARONE HCL 200 MG TABLET (FP) PO SCH (11:06)
[2016-03-15] MEDS: DIGOXIN 0.125 MG TABLET (FP) PO SCH (11:06)
[2016-03-15] MEDS: CARVEDILOL 3.125 MG TABLET (FP) PO SCH ×2 (11:06→21:05)
[2016-03-15] MEDS: RAMIPRIL 2.5 MG CAPSULE (FP) PO SCH (11:06)
[2016-03-15] MEDS: ASPIRIN 81 MG CHEWABLE TABLETS PO SCH (11:06)
[2016-03-15] MEDS: ALBUTEROL SO4 2.5/IPRATROPIUM 0.5 INH SOL 3 ML VIAL.NEB. NEB PRN (12:00)
[2016-03-15] MEDS: WARFARIN NA 2 MG TABLET (UD) PO SCH (17:33)
--- NOTE | 2016-03-15 20:15 | PN ---
Progress Note, Physician History of Present Illness: No new changes however pt is still w/ fluid overload - Current Medication List Current Medications: Active Medications Albuterol/Ipratropium (Duoneb -) 1 amp NEB Q4H PRN PRN Reason: SHORTNESS OF BREATH Last Admin: 03/15/16 12:00 Dose: 1 amp Amiodarone HCl (Cordarone -) 200 mg PO DAILY [facility] Last Admin: 03/15/16 11:06 Dose: 200 mg Aspirin (Asa -) 81 mg PO DAILY [facility] Last Admin: 03/15/16 11:06 Dose: 81 mg Atorvastatin Calcium (Lipitor -) 20 mg PO HS [facility] Last Admin: 03/14/16 21:49 Dose: 20 mg Carvedilol (Coreg -) 3.125 mg PO BID [facility] Last Admin: 03/15/16 11:06 Dose: 3.125 mg Digoxin (Lanoxin -) 0.125 mg PO DAILY [facility] Last Admin: 03/15/16 11:06 Dose: 0.125 mg Furosemide (Lasix Injection -) 40 mg IVPUSH BID@0600,1400 [facility] Last Admin: 03/15/16 15:13 Dose: 40 mg Mometasone Furoate (Asmanex 220mcg -) 1 puff IH HS [facility] Last Admin: 03/14/16 21:49 Dose: 1 puff Ramipril (Altace -) 2.5 mg PO DAILY [facility] Last Admin: 03/15/16 11:06 Dose: 2.5 mg Ranitidine HCl (Zantac -) 150 mg PO DAILY [facility] Last Admin: 03/15/16 11:06 Dose: 150 mg Warfarin Sodium (Coumadin -) 4 mg PO DAILY@1800 [facility] Last Admin: 03/15/16 17:33 Dose: 4 mg - Objective Vital Signs: Vital Signs Temperature 97.4 F L 03/15/16 18:00 Pulse Rate 71 03/15/16 18:00 Respiratory Rate 18 03/15/16 18:00 Blood Pressure 103/75 03/15/16 18:00 O2 Sat by Pulse Oximetry (%) 98 03/15/16 09:00 Neck: Yes: Supple Cardiovascular: Yes: WNL, Regular Rate and Rhythm Respiratory: Yes: WNL, Rales Gastrointestinal: Yes: WNL, Normal Bowel Sounds, Soft, Abdomen, Obese Edema: LLE: 2+, RLE: 2+ Labs: CBC, BMP 03/15/16 05:35 03/15/16 05:35 INR, PTT INR 2.61 (0.82-1.09) H 03/15/16 05:35 Problem List - Problems (1) CHF exacerbation Assessment/Plan: 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 Cont IV lasix Monitor I's/O's Monitor electrolytes Code(s): I50.9 - HEART FAILURE, UNSPECIFIED (2) Elevated troponin Assessment/Plan: Due to demand ischemia from chf Code(s): R79.89 - OTHER SPECIFIED ABNORMAL FINDINGS OF BLOOD CHEMISTRY (3) CRI (chronic renal insufficiency) Code(s): N18.9 - CHRONIC KIDNEY DISEASE, UNSPECIFIED (4) Edema due to congestive heart failure Code(s): R60.9 - EDEMA, UNSPECIFIED I50.9 - HEART FAILURE, UNSPECIFIED (5) Afib Assessment/Plan: Cont coumadin Follow pt/inr Code(s): I48.91 - UNSPECIFIED ATRIAL FIBRILLATION (6) Hypertension Code(s): I10 - ESSENTIAL (PRIMARY) HYPERTENSION (7) Hyperlipemia Code(s): E78.5 - HYPERLIPIDEMIA, UNSPECIFIED
[2016-03-15] MEDS: MOMETASONE FUROATE 220 MCG/IH INHALER IH SCH (21:05)
[2016-03-15] MEDS: ATORVASTATIN CA 20 MG TABLET (FP) PO SCH (21:05)
[2016-03-16] MEDS: FUROSEMIDE 40 MG/4 ML INJECTABLE VIAL IVPUSH SCH ×2 (06:44→13:49)
[2016-03-16 08:32] LABS: BASOPHIL 0.3 % (0-2.0); EOSINOPHIL 0.9 % (0-4.5); MCHC 32.3 g/dl (32.0-35.9); MEAN CELL VOLUME 89.8 fl (80-96); MEAN PLT VOLUME 9.8 fl (7.5-11.1); NEUTROPHILS 59.9 % (42.8-82.8); PLATELET COUNT 146 K/MM3 (134-434); RDW 18.7 % (11.9-15.9); WHITE BLOOD COUNT 5.7 K/mm3 (4.0-10.0)
[2016-03-16 08:37] LABS: INR 3.26 (0.82-1.09); PROTHROMBIN TIME (PATIENT) 36.7 SEC (9.98-11.88)
[2016-03-16 08:55] LABS: ALBUMIN 3.4 g/dl (3.4-5.0); ANION GAP 7 (8-16); CALCIUM 9.1 mg/dL (8.5-10.1); CO2 35 mmol/L (21-32); GLUCOSE,RANDOM 86 mg/dL (74-106)
[2016-03-16 08:59] LABS: ALK PHOS 304 U/L (45-117); BILIRUBIN,TOTAL 1.7 mg/dL (0.2-1.0); SGOT/AST 59 U/L (15-37); SGPT/ALT 36 U/L (12-78); TOT PROT 7.3 g/dl (6.4-8.2)
--- NOTE | 2016-03-16 09:29 | PN ---
Progress Note, Physician Chief Complaint: sitting up, no distress - Current Medication List Current Medications: Active Medications Albuterol/Ipratropium (Duoneb -) 1 amp NEB Q4H PRN PRN Reason: SHORTNESS OF BREATH Last Admin: 03/15/16 12:00 Dose: 1 amp Amiodarone HCl (Cordarone -) 200 mg PO DAILY [facility] Last Admin: 03/15/16 11:06 Dose: 200 mg Aspirin (Asa -) 81 mg PO DAILY [facility] Last Admin: 03/15/16 11:06 Dose: 81 mg Atorvastatin Calcium (Lipitor -) 20 mg PO HS [facility] Last Admin: 03/15/16 21:05 Dose: 20 mg Carvedilol (Coreg -) 3.125 mg PO BID [facility] Last Admin: 03/15/16 21:05 Dose: 3.125 mg Digoxin (Lanoxin -) 0.125 mg PO DAILY [facility] Last Admin: 03/15/16 11:06 Dose: 0.125 mg Furosemide (Lasix Injection -) 40 mg IVPUSH BID@0600,1400 [facility] Last Admin: 03/16/16 06:44 Dose: 40 mg Mometasone Furoate (Asmanex 220mcg -) 1 puff IH [facility] Last Admin: 03/15/16 21:05 Dose: 1 puff Ramipril (Altace -) 2.5 mg PO DAILY [facility] Last Admin: 03/15/16 11:06 Dose: 2.5 mg Ranitidine HCl (Zantac -) 150 mg PO DAILY [facility] Last Admin: 03/15/16 11:06 Dose: 150 mg Warfarin Sodium (Coumadin -) 4 mg PO DAILY@1800 [facility] Last Admin: 03/15/16 17:33 Dose: 4 mg - Objective Vital Signs: Vital Signs Temperature 97.6 F 03/16/16 02:00 Pulse Rate 74 03/16/16 02:00 Respiratory Rate 18 03/16/16 02:00 Blood Pressure 104/61 03/16/16 02:00 O2 Sat by Pulse Oximetry (%) 95 03/15/16 21:00 Constitutional: Yes: No Distress Cardiovascular: Yes: Regular Rate and Rhythm Respiratory: Yes: Other (improved air movement, decreased rales.) Gastrointestinal: Yes: Soft (less distended) Edema: Yes Edema: LLE: 2+, RLE: 2+ Neurological: Yes: Alert Labs: CBC, BMP 03/16/16 07:10 03/16/16 07:10 INR, PTT INR 3.26 (0.82-1.09) H 03/16/16 07:10 Laboratory Tests 03/16/16 03/16/16 03/16/16 07:10 07:10 07:10 WBC 5.7 Hgb 11.4 L Plt Count 146 INR 3.26 H Sodium 135 L Potassium 3.5 BUN 29 H Creatinine 1.0 - ....Imaging EKG: Image Reviewed Assessment/Plan Assessment/Plan Acute on chronic systolic CHF, underlying non-ischemic CM, s/p ICD Severe s/p TAVR Chronic AF on coumadin Mitral regurgitation Plan: Cont Lasix 40mg IV bid for additional 24-48 hours; ramipril added. Mild troponin elevation likely secondary to acute chf No Afib with RVR thus far on tele Cont coumadin for goal INR 2-3. Hold today.
[2016-03-16] MEDS: ASPIRIN 81 MG CHEWABLE TABLETS PO SCH (10:34)
[2016-03-16] MEDS: DIGOXIN 0.125 MG TABLET (FP) PO SCH (10:34)
[2016-03-16] MEDS: RANITIDINE HCL 150 MG TABLET (FP) PO SCH (10:34)
[2016-03-16] MEDS: AMIODARONE HCL 200 MG TABLET (FP) PO SCH (10:34)
[2016-03-16] MEDS: RAMIPRIL 2.5 MG CAPSULE (FP) PO SCH (10:34)
[2016-03-16] MEDS: CARVEDILOL 3.125 MG TABLET (FP) PO SCH ×2 (10:34→22:22)
--- NOTE | 2016-03-16 20:12 | PN ---
Progress Note, Physician History of Present Illness: Pt w/ SOB - Current Medication List Current Medications: Active Medications Albuterol/Ipratropium (Duoneb -) 1 amp NEB Q4H PRN PRN Reason: SHORTNESS OF BREATH Last Admin: 03/15/16 12:00 Dose: 1 amp Amiodarone HCl (Cordarone -) 200 mg PO DAILY [facility] Last Admin: 03/16/16 10:34 Dose: 200 mg Aspirin (Asa -) 81 mg PO DAILY [facility] Last Admin: 03/16/16 10:34 Dose: 81 mg Atorvastatin Calcium (Lipitor -) 20 mg PO HS [facility] Last Admin: 03/15/16 21:05 Dose: 20 mg Carvedilol (Coreg -) 3.125 mg PO BID [facility] Last Admin: 03/16/16 10:34 Dose: 3.125 mg Digoxin (Lanoxin -) 0.125 mg PO DAILY [facility] Last Admin: 03/16/16 10:34 Dose: 0.125 mg Furosemide (Lasix Injection -) 40 mg IVPUSH BID@0600,1400 [facility] Last Admin: 03/16/16 13:49 Dose: 40 mg Mometasone Furoate (Asmanex 220mcg -) 1 puff IH [facility] Last Admin: 03/15/16 21:05 Dose: 1 puff Ramipril (Altace -) 2.5 mg PO DAILY [facility] Last Admin: 03/16/16 10:34 Dose: 2.5 mg Ranitidine HCl (Zantac -) 150 mg PO DAILY [facility] Last Admin: 03/16/16 10:34 Dose: 150 mg Warfarin Sodium (Coumadin -) 4 mg PO DAILY@1800 [facility] Last Admin: 03/15/16 17:33 Dose: 4 mg - Objective Vital Signs: Vital Signs Temperature 97.6 F 03/16/16 14:32 Pulse Rate 72 03/16/16 14:32 Respiratory Rate 16 03/16/16 14:32 Blood Pressure 92/57 03/16/16 14:32 O2 Sat by Pulse Oximetry (%) 98 03/16/16 09:00 Cardiovascular: Yes: WNL, Regular Rate and Rhythm Respiratory: Yes: Rales Gastrointestinal: Yes: WNL, Normal Bowel Sounds, Soft Edema: LLE: 2+, RLE: 2+ Labs: CBC, BMP 03/16/16 07:10 03/16/16 07:10 INR, PTT INR 3.26 (0.82-1.09) H 03/16/16 07:10 Problem List - Problems (1) CHF exacerbation Assessment/Plan: 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 Cont diuresis Cont IV lasix Monitor I's/O's Monitor electrolytes Code(s): I50.9 - HEART FAILURE, UNSPECIFIED (2) Elevated troponin Assessment/Plan: Due to demand ischemia from chf Code(s): R79.89 - OTHER SPECIFIED ABNORMAL FINDINGS OF BLOOD CHEMISTRY (3) CRI (chronic renal insufficiency) Assessment/Plan: Monitor labs Code(s): N18.9 - CHRONIC KIDNEY DISEASE, UNSPECIFIED (4) Edema due to congestive heart failure Code(s): R60.9 - EDEMA, UNSPECIFIED I50.9 - HEART FAILURE, UNSPECIFIED (5) Afib Code(s): I48.91 - UNSPECIFIED ATRIAL FIBRILLATION (6) Hypertension Code(s): I10 - ESSENTIAL (PRIMARY) HYPERTENSION (7) Hyperlipemia Code(s): E78.5 - HYPERLIPIDEMIA, UNSPECIFIED
[2016-03-16] MEDS: ALBUTEROL SO4 2.5/IPRATROPIUM 0.5 INH SOL 3 ML VIAL.NEB. NEB PRN (21:40)
[2016-03-16] MEDS ORDERED: PT OWN MED DRAWER 7, Y5N ONE (22:19)
[2016-03-16] MEDS: MOMETASONE FUROATE 220 MCG/IH INHALER IH SCH (22:22)
[2016-03-16] MEDS: ATORVASTATIN CA 20 MG TABLET (FP) PO SCH (22:22)
[2016-03-17] MEDS: FUROSEMIDE 40 MG/4 ML INJECTABLE VIAL IVPUSH SCH ×2 (06:41→15:02)
[2016-03-17 08:12] LABS: CALCIUM 8.7 mg/dL (8.5-10.1); CREATININE 1.1 mg/dL (0.7-1.3)
[2016-03-17] MEDS: RANITIDINE HCL 150 MG TABLET (FP) PO SCH (08:59)
[2016-03-17] MEDS: CARVEDILOL 3.125 MG TABLET (FP) PO SCH ×2 (08:59→22:35)
[2016-03-17] MEDS: DIGOXIN 0.125 MG TABLET (FP) PO SCH (08:59)
[2016-03-17] MEDS: RAMIPRIL 2.5 MG CAPSULE (FP) PO SCH (08:59)
[2016-03-17] MEDS: AMIODARONE HCL 200 MG TABLET (FP) PO SCH (08:59)
[2016-03-17] MEDS: ASPIRIN 81 MG CHEWABLE TABLETS PO SCH (08:59)
[2016-03-17 10:36] LABS: INR 3.7 (0.82-1.09); PROTHROMBIN TIME (PATIENT) 41.8 SEC (9.98-11.88)
--- NOTE | 2016-03-17 10:57 | PN ---
Progress Note, Physician History of Present Illness: seen and examined today in nad. states he is feeling better but still has sob, LE edema. cough. - Current Medication List Current Medications: Active Medications Albuterol/Ipratropium (Duoneb -) 1 amp NEB Q4H PRN PRN Reason: SHORTNESS OF BREATH Last Admin: 03/16/16 21:40 Dose: 1 amp Amiodarone HCl (Cordarone -) 200 mg PO DAILY [facility] Last Admin: 03/17/16 08:59 Dose: 200 mg Aspirin (Asa -) 81 mg PO DAILY [facility] Last Admin: 03/17/16 08:59 Dose: 81 mg Atorvastatin Calcium (Lipitor -) 20 mg PO HS [facility] Last Admin: 03/16/16 22:22 Dose: 20 mg Carvedilol (Coreg -) 3.125 mg PO BID [facility] Last Admin: 03/17/16 08:59 Dose: 3.125 mg Digoxin (Lanoxin -) 0.125 mg PO DAILY [facility] Last Admin: 03/17/16 08:59 Dose: 0.125 mg Furosemide (Lasix Injection -) 40 mg IVPUSH BID@0600,1400 [facility] Last Admin: 03/17/16 06:41 Dose: 40 mg Mometasone Furoate (Asmanex 220mcg -) 1 puff IH HS [facility] Last Admin: 03/16/16 22:22 Dose: 1 puff Ramipril (Altace -) 2.5 mg PO DAILY [facility] Last Admin: 03/17/16 08:59 Dose: 2.5 mg Ranitidine HCl (Zantac -) 150 mg PO DAILY [facility] Last Admin: 03/17/16 08:59 Dose: 150 mg - Objective Vital Signs: Vital Signs Temperature 97.8 F 03/17/16 06:00 Pulse Rate 70 03/17/16 10:38 Respiratory Rate 18 03/17/16 06:00 Blood Pressure 109/67 03/17/16 06:00 O2 Sat by Pulse Oximetry (%) 97 03/17/16 10:38 Constitutional: Yes: Well Nourished, No Distress, Calm Eyes: Yes: WNL, Conjunctiva Clear, EOM Intact, PERRL HENT: Yes: WNL, Atraumatic, Normocephalic Neck: Yes: WNL, Supple, Trachea Midline Cardiovascular: Yes: Pulse Irregular, Murmur, S1, S2. No: Bradycardia, Tachycardia, Bruit, JVD, Gallop, Rub, S3, S4, Varicosities Respiratory: Yes: Regular, Diminished, Rales. No: Rhonchi, Wheezes Gastrointestinal: Yes: WNL, Normal Bowel Sounds, Soft. No: Distention, Tenderness Musculoskeletal: Yes: WNL Extremities: Yes: WNL Edema: Yes Edema: LLE: 2+, RLE: 2+ Peripheral Pulses WNL: Yes Peripheral Pulses: Left Doralis Pedis: 2+, Right Dorsalis Pedis: 2+ Integumentary: Yes: WNL Neurological: Yes: WNL, Alert, Oriented, Cran Nerves II-XII Intact ...Motor Strength: WNL Psychiatric: Yes: WNL, Alert, Oriented Labs: CBC, BMP 03/16/16 07:10 03/17/16 06:00 INR, PTT INR 3.70 (0.82-1.09) H 03/17/16 09:50 - ....Imaging Chest X-ray: Report Reviewed, Image Reviewed EKG: Report Reviewed, Image Reviewed Other: Report Reviewed, Image Reviewed (tele-Afib, HR controlled, AV paced, 3 beats nsvt) Assessment/Plan Acute on chronic systolic CHF, underlying non-ischemic CM, s/p ICD Severe s/p TAVR Chronic AF on coumadin Mitral regurgitation Plan: Pulmonary edema is clinically improving but pt still significantly volume overloaded I/Os not significantly negative and weight has not decreased significantly Will increase Lasix to 80mg IV BID today and re-evaluate tomorrow for improvement Monitor strict I/os and daily weights Replete electrolytes Cont ramipril, coreg, digoxin, amiodarone, asa, lipitor Mild troponin elevation likely secondary to acute chf No Afib with RVR on tele Hold coumadin for supratherapeutic INR and resume when INR less than 3 for goal INR 2-3
--- NOTE | 2016-03-17 19:37 | PN ---
Progress Note, Physician History of Present Illness: No new complaints - Current Medication List Current Medications: Active Medications Albuterol/Ipratropium (Duoneb -) 1 amp NEB Q4H PRN PRN Reason: SHORTNESS OF BREATH Last Admin: 03/16/16 21:40 Dose: 1 amp Amiodarone HCl (Cordarone -) 200 mg PO DAILY [facility] Last Admin: 03/17/16 08:59 Dose: 200 mg Aspirin (Asa -) 81 mg PO DAILY [facility] Last Admin: 03/17/16 08:59 Dose: 81 mg Atorvastatin Calcium (Lipitor -) 20 mg PO HS [facility] Last Admin: 03/16/16 22:22 Dose: 20 mg Carvedilol (Coreg -) 3.125 mg PO BID [facility] Last Admin: 03/17/16 08:59 Dose: 3.125 mg Digoxin (Lanoxin -) 0.125 mg PO DAILY [facility] Last Admin: 03/17/16 08:59 Dose: 0.125 mg Furosemide (Lasix Injection -) 80 mg IVPUSH BID@0600,1400 [facility] Last Admin: 03/17/16 15:02 Dose: 80 mg Mometasone Furoate (Asmanex 220mcg -) 1 puff IH [facility] Last Admin: 03/16/16 22:22 Dose: 1 puff Ramipril (Altace -) 2.5 mg PO DAILY [facility] Last Admin: 03/17/16 08:59 Dose: 2.5 mg Ranitidine HCl (Zantac -) 150 mg PO DAILY [facility] Last Admin: 03/17/16 08:59 Dose: 150 mg - Objective Vital Signs: Vital Signs Temperature 98.0 F 03/17/16 14:00 Pulse Rate 68 03/17/16 14:00 Respiratory Rate 18 03/17/16 14:00 Blood Pressure 98/47 03/17/16 14:00 O2 Sat by Pulse Oximetry (%) 97 03/17/16 10:38 Constitutional: Yes: Well Nourished Neck: Yes: Supple Cardiovascular: Yes: WNL, Regular Rate and Rhythm Respiratory: Yes: WNL, Regular, CTA Bilaterally Gastrointestinal: Yes: WNL, Normal Bowel Sounds, Soft Labs: CBC, BMP 03/16/16 07:10 03/17/16 06:00 INR, PTT INR 3.70 (0.82-1.09) H 03/17/16 09:50 Problem List - Problems (1) CHF exacerbation Code(s): I50.9 - HEART FAILURE, UNSPECIFIED (2) Elevated troponin Code(s): R79.89 - OTHER SPECIFIED ABNORMAL FINDINGS OF BLOOD CHEMISTRY (3) CRI (chronic renal insufficiency) Code(s): N18.9 - CHRONIC KIDNEY DISEASE, UNSPECIFIED (4) Edema due to congestive heart failure Code(s): R60.9 - EDEMA, UNSPECIFIED I50.9 - HEART FAILURE, UNSPECIFIED (5) Afib Code(s): I48.91 - UNSPECIFIED ATRIAL FIBRILLATION (6) Hypertension Code(s): I10 - ESSENTIAL (PRIMARY) HYPERTENSION (7) Hyperlipemia Code(s): E78.5 - HYPERLIPIDEMIA, UNSPECIFIED
[2016-03-17] MEDS ORDERED: PT OWN MED DRAWER 7, Y5N ONE (22:30)
[2016-03-17] MEDS: MOMETASONE FUROATE 220 MCG/IH INHALER IH SCH (22:35)
[2016-03-17] MEDS: ATORVASTATIN CA 20 MG TABLET (FP) PO SCH (22:35)
[2016-03-18] MEDS: FUROSEMIDE 40 MG/4 ML INJECTABLE VIAL IVPUSH SCH ×2 (06:38→16:00)
[2016-03-18] MEDS: CARVEDILOL 3.125 MG TABLET (FP) PO SCH ×2 (10:46→22:19)
[2016-03-18] MEDS: AMIODARONE HCL 200 MG TABLET (FP) PO SCH (10:46)
[2016-03-18] MEDS: RAMIPRIL 2.5 MG CAPSULE (FP) PO SCH (10:46)
[2016-03-18] MEDS: ASPIRIN 81 MG CHEWABLE TABLETS PO SCH (10:46)
[2016-03-18] MEDS: RANITIDINE HCL 150 MG TABLET (FP) PO SCH (10:46)
[2016-03-18] MEDS: DIGOXIN 0.125 MG TABLET (FP) PO SCH (10:47)
--- NOTE | 2016-03-18 11:29 | PN ---
Progress Note, Physician History of Present Illness: seen and examined today in nad. states he is feeling better. sob slightly better. LE slightly better. no overnight events. no new complaints. - Current Medication List Current Medications: Active Medications Albuterol/Ipratropium (Duoneb -) 1 amp NEB Q4H PRN PRN Reason: SHORTNESS OF BREATH Last Admin: 03/16/16 21:40 Dose: 1 amp Amiodarone HCl (Cordarone -) 200 mg PO DAILY [facility] Last Admin: 03/18/16 10:46 Dose: 200 mg Aspirin (Asa -) 81 mg PO DAILY [facility] Last Admin: 03/18/16 10:46 Dose: 81 mg Atorvastatin Calcium (Lipitor -) 20 mg PO HS [facility] Last Admin: 03/17/16 22:35 Dose: 20 mg Carvedilol (Coreg -) 3.125 mg PO BID [facility] Last Admin: 03/18/16 10:46 Dose: 3.125 mg Digoxin (Lanoxin -) 0.125 mg PO DAILY [facility] Last Admin: 03/18/16 10:47 Dose: 0.125 mg Furosemide (Lasix Injection -) 80 mg IVPUSH BID@0600,1400 [facility] Last Admin: 03/18/16 06:38 Dose: 80 mg Mometasone Furoate (Asmanex 220mcg -) 1 puff IH HS [facility] Last Admin: 03/17/16 22:35 Dose: 1 puff Ramipril (Altace -) 2.5 mg PO DAILY [facility] Last Admin: 03/18/16 10:46 Dose: 2.5 mg Ranitidine HCl (Zantac -) 150 mg PO DAILY [facility] Last Admin: 03/18/16 10:46 Dose: 150 mg - Objective Vital Signs: Vital Signs Temperature 97.9 F 03/18/16 10:00 Pulse Rate 70 03/18/16 10:47 Respiratory Rate 20 03/18/16 10:00 Blood Pressure 98/56 03/18/16 10:00 O2 Sat by Pulse Oximetry (%) 95 03/17/16 21:00 Constitutional: Yes: Well Nourished, No Distress, Calm Eyes: Yes: WNL, Conjunctiva Clear, EOM Intact, PERRL HENT: Yes: WNL, Atraumatic, Normocephalic Neck: Yes: WNL, Supple, Trachea Midline Cardiovascular: Yes: Pulse Irregular, Murmur, S1, S2. No: Bradycardia, Tachycardia, Bruit, JVD, Gallop, Rub, S3, S4, Varicosities Respiratory: Yes: Regular, Diminished, Wheezes. No: Rales, Rhonchi Gastrointestinal: Yes: WNL, Normal Bowel Sounds, Soft. No: Distention, Tenderness Musculoskeletal: Yes: WNL Extremities: Yes: WNL Edema: Yes Edema: LLE: 2+, RLE: 2+ Peripheral Pulses WNL: Yes Peripheral Pulses: Left Doralis Pedis: 2+, Right Dorsalis Pedis: 2+ Integumentary: Yes: Venous Stasis Changes Neurological: Yes: WNL, Alert, Oriented, Cran Nerves II-XII Intact ...Motor Strength: WNL Psychiatric: Yes: WNL, Alert, Oriented Labs: CBC, BMP 03/16/16 07:10 03/17/16 06:00 INR, PTT INR 3.70 (0.82-1.09) H 03/17/16 09:50 - ....Imaging Chest X-ray: Report Reviewed, Image Reviewed EKG: Report Reviewed, Image Reviewed Other: Report Reviewed, Image Reviewed (tele-Afib HR controlled, Vpaced, PVCs) Assessment/Plan Acute on chronic systolic CHF, underlying non-ischemic CM, s/p ICD Severe s/p TAVR Chronic AF on coumadin Mitral regurgitation Plan: Lasix increased with improvement in fluid balance Still significantly volume overloaded Cont Lasix 80mg IV BID Monitor strict I/os and daily weights Replete electrolytes Cont ramipril, coreg, digoxin, amiodarone, asa, lipitor Mild troponin elevation likely secondary to acute chf No Afib with RVR on tele Hold coumadin for supratherapeutic INR and resume when INR less than 3 for goal INR 2-3
--- NOTE | 2016-03-18 16:12 | PN ---
Progress Note, Physician History of Present Illness: Pt w/ SOB and really not ambulating - Current Medication List Current Medications: Active Medications Albuterol/Ipratropium (Duoneb -) 1 amp NEB Q4H PRN PRN Reason: SHORTNESS OF BREATH Last Admin: 03/16/16 21:40 Dose: 1 amp Amiodarone HCl (Cordarone -) 200 mg PO DAILY [facility] Last Admin: 03/18/16 10:46 Dose: 200 mg Aspirin (Asa -) 81 mg PO DAILY [facility] Last Admin: 03/18/16 10:46 Dose: 81 mg Atorvastatin Calcium (Lipitor -) 20 mg PO HS [facility] Last Admin: 03/17/16 22:35 Dose: 20 mg Carvedilol (Coreg -) 3.125 mg PO BID [facility] Last Admin: 03/18/16 10:46 Dose: 3.125 mg Digoxin (Lanoxin -) 0.125 mg PO DAILY [facility] Last Admin: 03/18/16 10:47 Dose: 0.125 mg Furosemide (Lasix Injection -) 80 mg IVPUSH BID@0600,1400 [facility] Last Admin: 03/18/16 06:38 Dose: 80 mg Mometasone Furoate (Asmanex 220mcg -) 1 puff IH HS [facility] Last Admin: 03/17/16 22:35 Dose: 1 puff Ramipril (Altace -) 2.5 mg PO DAILY [facility] Last Admin: 03/18/16 10:46 Dose: 2.5 mg Ranitidine HCl (Zantac -) 150 mg PO DAILY [facility] Last Admin: 03/18/16 10:46 Dose: 150 mg - Objective Vital Signs: Vital Signs Temperature 98.0 F 03/18/16 14:00 Pulse Rate 68 03/18/16 14:00 Respiratory Rate 20 03/18/16 14:00 Blood Pressure 96/55 03/18/16 14:00 O2 Sat by Pulse Oximetry (%) 92 L 03/18/16 09:00 Neck: Yes: Supple Cardiovascular: Yes: Pulse Irregular Respiratory: Yes: Wheezes Gastrointestinal: Yes: Normal Bowel Sounds, Soft, Abdomen, Obese Edema: LLE: 2+, RLE: 2+ Labs: CBC, BMP 03/16/16 07:10 03/17/16 06:00 INR, PTT INR 3.70 (0.82-1.09) H 03/17/16 09:50 Problem List - Problems (1) CHF exacerbation Assessment/Plan: 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 Cont diuresis w/ IV lasix 80mg bid however evening dose was held due to hypotension Monitor I's/O's Monitor electrolytes Cont BB/ACEI Code(s): I50.9 - HEART FAILURE, UNSPECIFIED (2) Afib Assessment/Plan: Heart rate controlled on metoprolol/dig/amio Coumadin held for supratherapeutic pt/inr Follow pt/inr daily Code(s): I48.91 - UNSPECIFIED ATRIAL FIBRILLATION (3) Elevated troponin Assessment/Plan: Due to demand ischemia from chf Code(s): R79.89 - OTHER SPECIFIED ABNORMAL FINDINGS OF BLOOD CHEMISTRY (4) CRI (chronic renal insufficiency) Assessment/Plan: Monitor labs Stable Code(s): N18.9 - CHRONIC KIDNEY DISEASE, UNSPECIFIED (5) Edema due to congestive heart failure Code(s): R60.9 - EDEMA, UNSPECIFIED I50.9 - HEART FAILURE, UNSPECIFIED (6) Hypertension Assessment/Plan: BP slightly hypotensive and lasix dose held Code(s): I10 - ESSENTIAL (PRIMARY) HYPERTENSION (7) Hyperlipemia Code(s): E78.5 - HYPERLIPIDEMIA, UNSPECIFIED
[2016-03-18] MEDS ORDERED: PT OWN MED DRAWER 7, Y5N ONE (22:05)
[2016-03-18] MEDS: MOMETASONE FUROATE 220 MCG/IH INHALER IH SCH (22:19)
[2016-03-18] MEDS: ATORVASTATIN CA 20 MG TABLET (FP) PO SCH (22:19)
[2016-03-19] MEDS: FUROSEMIDE 40 MG/4 ML INJECTABLE VIAL IVPUSH SCH ×2 (06:36→13:40)
[2016-03-19 07:15] LABS: BASOPHIL 0.4 % (0-2.0); EOSINOPHIL 1.3 % (0-4.5); MCHC 32.8 g/dl (32.0-35.9); MEAN CELL VOLUME 88.5 fl (80-96); MEAN PLT VOLUME 9.8 fl (7.5-11.1); NEUTROPHILS 56.5 % (42.8-82.8); PLATELET COUNT 156 K/MM3 (134-434); RDW 18.7 % (11.9-15.9); WHITE BLOOD COUNT 5.7 K/mm3 (4.0-10.0)
[2016-03-19 07:29] LABS: INR 2.59 (0.82-1.09); PROTHROMBIN TIME (PATIENT) 29.1 SEC (9.98-11.88)
[2016-03-19 07:57] LABS: ANION GAP 6 (8-16); CALCIUM 8.5 mg/dL (8.5-10.1); CO2 36 mmol/L (21-32); GLUCOSE,RANDOM 81 mg/dL (74-106)
[2016-03-19 08:01] LABS: ALK PHOS 313 U/L (45-117); BILIRUBIN,TOTAL 1.5 mg/dL (0.2-1.0); CREATININE 0.9 mg/dL (0.7-1.3); SGOT/AST 54 U/L (15-37); SGPT/ALT 37 U/L (12-78); TOT PROT 6.9 g/dl (6.4-8.2)
[2016-03-19] MEDS: ASPIRIN 81 MG CHEWABLE TABLETS PO SCH (09:16)
[2016-03-19] MEDS: DIGOXIN 0.125 MG TABLET (FP) PO SCH (09:16)
[2016-03-19] MEDS: AMIODARONE HCL 200 MG TABLET (FP) PO SCH (09:16)
[2016-03-19] MEDS: CARVEDILOL 3.125 MG TABLET (FP) PO SCH ×2 (09:16→21:14)
[2016-03-19] MEDS: RANITIDINE HCL 150 MG TABLET (FP) PO SCH (09:16)
[2016-03-19] MEDS: RAMIPRIL 2.5 MG CAPSULE (FP) PO SCH (09:17)
--- NOTE | 2016-03-19 11:57 | PN ---
Progress Note, Physician History of Present Illness: seen and examined today in nad. feeling better. no overnight events. no new complaints. - Current Medication List Current Medications: Active Medications Albuterol/Ipratropium (Duoneb -) 1 amp NEB Q4H PRN PRN Reason: SHORTNESS OF BREATH Last Admin: 03/16/16 21:40 Dose: 1 amp Amiodarone HCl (Cordarone -) 200 mg PO DAILY [facility] Last Admin: 03/19/16 09:16 Dose: 200 mg Aspirin (Asa -) 81 mg PO DAILY [facility] Last Admin: 03/19/16 09:16 Dose: 81 mg Atorvastatin Calcium (Lipitor -) 20 mg PO [facility] Last Admin: 03/18/16 22:19 Dose: 20 mg Carvedilol (Coreg -) 3.125 mg PO BID [facility] Last Admin: 03/19/16 09:16 Dose: 3.125 mg Digoxin (Lanoxin -) 0.125 mg PO DAILY [facility] Last Admin: 03/19/16 09:16 Dose: 0.125 mg Furosemide (Lasix Injection -) 80 mg IVPUSH BID@0600,1400 [facility] Last Admin: 03/19/16 06:36 Dose: 80 mg Mometasone Furoate (Asmanex 220mcg -) 1 puff IH HS [facility] Last Admin: 03/18/16 22:19 Dose: 1 puff Ramipril (Altace -) 2.5 mg PO DAILY [facility] Last Admin: 03/19/16 09:17 Dose: 2.5 mg Ranitidine HCl (Zantac -) 150 mg PO DAILY [facility] Last Admin: 03/19/16 09:16 Dose: 150 mg - Objective Vital Signs: Vital Signs Temperature 98.1 F 03/19/16 10:00 Pulse Rate 72 03/19/16 10:06 Respiratory Rate 20 03/19/16 10:00 Blood Pressure 113/62 03/19/16 10:00 O2 Sat by Pulse Oximetry (%) 95 03/19/16 10:06 Constitutional: Yes: Well Nourished, No Distress, Calm Eyes: Yes: WNL, Conjunctiva Clear, EOM Intact, PERRL HENT: Yes: WNL, Atraumatic, Normocephalic Neck: Yes: WNL, Supple, Trachea Midline Cardiovascular: Yes: Pulse Irregular, Murmur, S1, S2. No: Bradycardia, Tachycardia, Bruit, JVD, Gallop, Rub, S3, S4, Varicosities Respiratory: Yes: Regular, Diminished, Rhonchi, Wheezes. No: Rales Gastrointestinal: Yes: WNL, Normal Bowel Sounds, Soft. No: Distention, Tenderness Musculoskeletal: Yes: WNL Extremities: Yes: WNL Edema: Yes Edema: LLE: 2+, RLE: 2+ Peripheral Pulses WNL: Yes Peripheral Pulses: Left Doralis Pedis: 2+, Right Dorsalis Pedis: 2+ Integumentary: Yes: WNL Neurological: Yes: WNL, Alert, Oriented, Cran Nerves II-XII Intact ...Motor Strength: WNL Psychiatric: Yes: WNL, Alert, Oriented Labs: CBC, BMP 03/19/16 05:40 03/19/16 05:40 INR, PTT INR 2.59 (0.82-1.09) H 03/19/16 05:40 - ....Imaging Chest X-ray: Report Reviewed, Image Reviewed EKG: Report Reviewed, Image Reviewed Other: Report Reviewed, Image Reviewed (tele-AFib hr controlled, Vpaced intermittently, PVCs) Assessment/Plan Acute on chronic systolic CHF, underlying non-ischemic CM, s/p ICD Severe s/p TAVR Chronic AF on coumadin Mitral regurgitation Plan: Still volume overloaded I/os reported as net positive in last 24 hours, unclear if accurate as weight is reported as trending down BUN/creat is improving Cont Lasix 80mg IV BID Monitor strict I/os and daily weights Replete electrolytes Cont ramipril, coreg, digoxin, amiodarone, asa, lipitor Mild troponin elevation likely secondary to acute chf No Afib with RVR on tele INR 2.59 today, can resume coumadin at lower dose for goal INR 2-3
[2016-03-19] MEDS: WARFARIN NA 1 MG TABLET (FP) PO SCH (17:45)
[2016-03-19] MEDS ORDERED: PT OWN MED DRAWER 7, Y5N ONE (21:10)
[2016-03-19] MEDS: MOMETASONE FUROATE 220 MCG/IH INHALER IH SCH (21:13)
[2016-03-19] MEDS: ATORVASTATIN CA 20 MG TABLET (FP) PO SCH (21:13)
--- NOTE | 2016-03-19 22:01 | PN ---
Progress Note, Physician History of Present Illness: No new complaints - Current Medication List Current Medications: Active Medications Albuterol/Ipratropium (Duoneb -) 1 amp NEB Q4H PRN PRN Reason: SHORTNESS OF BREATH Last Admin: 03/16/16 21:40 Dose: 1 amp Amiodarone HCl (Cordarone -) 200 mg PO DAILY [facility] Last Admin: 03/19/16 09:16 Dose: 200 mg Aspirin (Asa -) 81 mg PO DAILY [facility] Last Admin: 03/19/16 09:16 Dose: 81 mg Atorvastatin Calcium (Lipitor -) 20 mg PO [facility] Last Admin: 03/19/16 21:13 Dose: 20 mg Carvedilol (Coreg -) 3.125 mg PO BID [facility] Last Admin: 03/19/16 21:14 Dose: 3.125 mg Digoxin (Lanoxin -) 0.125 mg PO DAILY [facility] Last Admin: 03/19/16 09:16 Dose: 0.125 mg Furosemide (Lasix Injection -) 80 mg IVPUSH BID@0600,1400 [facility] Last Admin: 03/19/16 13:40 Dose: 80 mg Mometasone Furoate (Asmanex 220mcg -) 1 puff IH [facility] Last Admin: 03/19/16 21:13 Dose: 1 puff Ramipril (Altace -) 2.5 mg PO DAILY [facility] Last Admin: 03/19/16 09:17 Dose: 2.5 mg Ranitidine HCl (Zantac -) 150 mg PO DAILY [facility] Last Admin: 03/19/16 09:16 Dose: 150 mg Warfarin Sodium (Coumadin -) 1 mg PO DAILY@1800 [facility] Last Admin: 03/19/16 17:45 Dose: 1 mg - Objective Vital Signs: Vital Signs Temperature 97.4 F L 03/19/16 18:52 Pulse Rate 72 03/19/16 18:52 Respiratory Rate 18 03/19/16 18:52 Blood Pressure 103/62 03/19/16 18:52 O2 Sat by Pulse Oximetry (%) 95 03/19/16 10:06 Constitutional: Yes: No Distress Neck: Yes: Supple Cardiovascular: Yes: WNL, Regular Rate and Rhythm Respiratory: Yes: Wheezes Gastrointestinal: Yes: WNL, Normal Bowel Sounds, Soft, Abdomen, Obese Labs: CBC, BMP 03/19/16 05:40 03/19/16 05:40 INR, PTT INR 2.59 (0.82-1.09) H 03/19/16 05:40 Problem List - Problems (1) CHF exacerbation Assessment/Plan: 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 Cont diuresis w/ IV lasix 80mg bid however evening dose was held due to hypotension Monitor I's/O's Monitor electrolytes Cont BB/ACEI Code(s): I50.9 - HEART FAILURE, UNSPECIFIED (2) Afib Assessment/Plan: Heart rate controlled on metoprolol/dig/amio Cont coumadin Follow pt/inr daily Code(s): I48.91 - UNSPECIFIED ATRIAL FIBRILLATION (3) Elevated troponin Assessment/Plan: Due to demand ischemia from chf Code(s): R79.89 - OTHER SPECIFIED ABNORMAL FINDINGS OF BLOOD CHEMISTRY (4) CRI (chronic renal insufficiency) Code(s): N18.9 - CHRONIC KIDNEY DISEASE, UNSPECIFIED (5) Edema due to congestive heart failure Code(s): R60.9 - EDEMA, UNSPECIFIED I50.9 - HEART FAILURE, UNSPECIFIED (6) Hypertension Code(s): I10 - ESSENTIAL (PRIMARY) HYPERTENSION (7) Hyperlipemia Code(s): E78.5 - HYPERLIPIDEMIA, UNSPECIFIED
[2016-03-19] MEDS ORDERED: POTASSIUM CHLORIDE TABS 20 MEQ TABLET.ER (FP) PO ONE (22:02)
[2016-03-20] MEDS: FUROSEMIDE 40 MG/4 ML INJECTABLE VIAL IVPUSH SCH (05:39)
[2016-03-20] MEDS: ALBUTEROL SO4 2.5/IPRATROPIUM 0.5 INH SOL 3 ML VIAL.NEB. NEB PRN ×2 (05:45→10:47)
[2016-03-20 07:51] LABS: BASOPHIL 0.6 % (0-2.0); EOSINOPHIL 1.4 % (0-4.5); MCH 28.6 pg (25.7-33.7); MCHC 31.9 g/dl (32.0-35.9); MEAN CELL VOLUME 89.4 fl (80-96); MEAN PLT VOLUME 9.8 fl (7.5-11.1); NEUTROPHILS 56.1 % (42.8-82.8); PLATELET COUNT 164 K/MM3 (134-434); RDW 18.2 % (11.9-15.9); WHITE BLOOD COUNT 5.7 K/mm3 (4.0-10.0)
[2016-03-20 08:23] LABS: ALBUMIN 3.1 g/dl (3.4-5.0); ANION GAP 10 (8-16); CALCIUM 8.9 mg/dL (8.5-10.1); CO2 36 mmol/L (21-32); GLUCOSE,RANDOM 80 mg/dL (74-106); SGOT/AST 53 U/L (15-37); SGPT/ALT 39 U/L (12-78)
[2016-03-20 08:25] LABS: ALK PHOS 318 U/L (45-117); TOT PROT 7.2 g/dl (6.4-8.2)
--- NOTE | 2016-03-20 09:51 | PN ---
Progress Note, Physician Chief Complaint: lui well sitting up - Current Medication List Current Medications: Active Medications Albuterol/Ipratropium (Duoneb -) 1 amp NEB Q4H PRN PRN Reason: SHORTNESS OF BREATH Last Admin: 03/20/16 05:45 Dose: 1 amp Amiodarone HCl (Cordarone -) 200 mg PO DAILY [facility] Last Admin: 03/19/16 09:16 Dose: 200 mg Aspirin (Asa -) 81 mg PO DAILY [facility] Last Admin: 03/19/16 09:16 Dose: 81 mg Atorvastatin Calcium (Lipitor -) 20 mg PO HS [facility] Last Admin: 03/19/16 21:13 Dose: 20 mg Carvedilol (Coreg -) 3.125 mg PO BID [facility] Last Admin: 03/19/16 21:14 Dose: 3.125 mg Digoxin (Lanoxin -) 0.125 mg PO DAILY [facility] Last Admin: 03/19/16 09:16 Dose: 0.125 mg Furosemide (Lasix Injection -) 80 mg IVPUSH BID@0600,1400 [facility] Last Admin: 03/20/16 05:39 Dose: 80 mg Mometasone Furoate (Asmanex 220mcg -) 1 puff IH [facility] Last Admin: 03/19/16 21:13 Dose: 1 puff Ramipril (Altace -) 2.5 mg PO DAILY [facility] Last Admin: 03/19/16 09:17 Dose: 2.5 mg Ranitidine HCl (Zantac -) 150 mg PO DAILY [facility] Last Admin: 03/19/16 09:16 Dose: 150 mg Warfarin Sodium (Coumadin -) 1 mg PO DAILY@1800 [facility] Last Admin: 03/19/16 17:45 Dose: 1 mg - Objective Vital Signs: Vital Signs Temperature 98.0 F 03/20/16 06:00 Pulse Rate 75 03/20/16 06:00 Respiratory Rate 18 03/20/16 06:00 Blood Pressure 135/65 03/20/16 06:00 O2 Sat by Pulse Oximetry (%) 96 03/19/16 21:00 Constitutional: Yes: No Distress Eyes: Yes: Conjunctiva Clear Cardiovascular: Yes: Regular Rate and Rhythm Respiratory: Yes: CTA Bilaterally Gastrointestinal: Yes: Soft Edema: Yes Edema: LLE: 2+, RLE: 2+ Neurological: Yes: Alert, Oriented Labs: CBC, BMP 03/20/16 06:50 03/20/16 06:50 INR, PTT INR 2.59 (0.82-1.09) H 03/19/16 05:40 - ....Imaging EKG: Image Reviewed (Paced, no sustained V arrhythmias Rare VPCS) Assessment/Plan Assessment/Plan Acute on chronic systolic CHF, underlying non-ischemic CM, s/p ICD Severe s/p TAVR Chronic AF on coumadin Mitral regurgitation Plan: Clinically improving BUN/creat is improving Cont Lasix 80mg IV BID today with plan to switch to PO tomorrow Cont ramipril, coreg, digoxin, amiodarone, asa, lipitor Mild troponin elevation likely secondary to acute chf No Afib with RVR on tele INR goal 2-3 for AF
[2016-03-20] MEDS ORDERED: PT OWN MED DRAWER 7, Y5N ONE ×2 (12:00→21:30)
[2016-03-20] MEDS: CARVEDILOL 3.125 MG TABLET (FP) PO SCH ×2 (12:02→21:49)
[2016-03-20] MEDS: AMIODARONE HCL 200 MG TABLET (FP) PO SCH (12:02)
[2016-03-20] MEDS: RAMIPRIL 2.5 MG CAPSULE (FP) PO SCH (12:02)
[2016-03-20] MEDS: ASPIRIN 81 MG CHEWABLE TABLETS PO SCH (12:02)
[2016-03-20] MEDS: RANITIDINE HCL 150 MG TABLET (FP) PO SCH (12:03)
[2016-03-20] MEDS: DIGOXIN 0.125 MG TABLET (FP) PO SCH (12:03)
[2016-03-20] MEDS: WARFARIN NA 1 MG TABLET (FP) PO SCH (17:43)
--- NOTE | 2016-03-20 19:59 | PN ---
Progress Note, Physician History of Present Illness: No new complaints - Current Medication List Current Medications: Active Medications Albuterol/Ipratropium (Duoneb -) 1 amp NEB Q4H PRN PRN Reason: SHORTNESS OF BREATH Last Admin: 03/20/16 10:47 Dose: 1 amp Amiodarone HCl (Cordarone -) 200 mg PO DAILY [facility] Last Admin: 03/20/16 12:02 Dose: 200 mg Aspirin (Asa -) 81 mg PO DAILY [facility] Last Admin: 03/20/16 12:02 Dose: 81 mg Atorvastatin Calcium (Lipitor -) 20 mg PO HS [facility] Last Admin: 03/19/16 21:13 Dose: 20 mg Carvedilol (Coreg -) 3.125 mg PO BID [facility] Last Admin: 03/20/16 12:02 Dose: 3.125 mg Digoxin (Lanoxin -) 0.125 mg PO DAILY [facility] Last Admin: 03/20/16 12:03 Dose: 0.125 mg Furosemide (Lasix -) 80 mg PO DAILY [facility] Mometasone Furoate (Asmanex 220mcg -) 1 puff IH [facility] Last Admin: 03/19/16 21:13 Dose: 1 puff Ramipril (Altace -) 2.5 mg PO DAILY [facility] Last Admin: 03/20/16 12:02 Dose: 2.5 mg Ranitidine HCl (Zantac -) 150 mg PO DAILY [facility] Last Admin: 03/20/16 12:03 Dose: 150 mg Warfarin Sodium (Coumadin -) 1 mg PO DAILY@1800 [facility] Last Admin: 03/20/16 17:43 Dose: 1 mg - Objective Vital Signs: Vital Signs Temperature 97.3 F L 03/20/16 14:50 Pulse Rate 76 03/20/16 14:50 Respiratory Rate 14 03/20/16 14:50 Blood Pressure 95/65 03/20/16 14:50 O2 Sat by Pulse Oximetry (%) 99 03/20/16 09:00 Neck: Yes: Supple Cardiovascular: Yes: WNL, Regular Rate and Rhythm Respiratory: Yes: WNL, Regular, CTA Bilaterally Gastrointestinal: Yes: WNL, Normal Bowel Sounds, Soft, Abdomen, Obese Edema: LLE: 1+, RLE: 1+ Labs: CBC, BMP 03/20/16 06:50 03/20/16 06:50 INR, PTT INR 2.59 (0.82-1.09) H 03/19/16 05:40 Problem List - Problems (1) CHF exacerbation Assessment/Plan: 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 Pt now on po lasix DC planning for am Monitor I's/O's Monitor electrolytes Cont BB/ACEI Code(s): I50.9 - HEART FAILURE, UNSPECIFIED (2) Afib Assessment/Plan: Heart rate controlled on metoprolol/dig/amio Cont coumadin Follow pt/inr daily Code(s): I48.91 - UNSPECIFIED ATRIAL FIBRILLATION (3) Elevated troponin Assessment/Plan: Due to demand ischemia from chf Code(s): R79.89 - OTHER SPECIFIED ABNORMAL FINDINGS OF BLOOD CHEMISTRY (4) CRI (chronic renal insufficiency) Assessment/Plan: Monitor labs Stable Code(s): N18.9 - CHRONIC KIDNEY DISEASE, UNSPECIFIED (5) Edema due to congestive heart failure Code(s): R60.9 - EDEMA, UNSPECIFIED I50.9 - HEART FAILURE, UNSPECIFIED (6) Hypertension Code(s): I10 - ESSENTIAL (PRIMARY) HYPERTENSION (7) Hyperlipemia Code(s): E78.5 - HYPERLIPIDEMIA, UNSPECIFIED
[2016-03-20] MEDS: ATORVASTATIN CA 20 MG TABLET (FP) PO SCH (21:49)
[2016-03-20] MEDS: MOMETASONE FUROATE 220 MCG/IH INHALER IH SCH (21:49)
[2016-03-21] MEDS ORDERED: PT OWN MED DRAWER 7, Y5N ONE (04:12)
[2016-03-21 08:24] LABS: INR 1.94 (0.82-1.09); PROTHROMBIN TIME (PATIENT) 21.6 SEC (9.98-11.88)
--- NOTE | 2016-03-21 09:22 | PN ---
Progress Note, Physician Chief Complaint: feels well sitting in chair History of Present Illness: tele without significant ventricular arrhythmias - Current Medication List Current Medications: Active Medications Albuterol/Ipratropium (Duoneb -) 1 amp NEB Q4H PRN PRN Reason: SHORTNESS OF BREATH Last Admin: 03/20/16 10:47 Dose: 1 amp Amiodarone HCl (Cordarone -) 200 mg PO DAILY [facility] Last Admin: 03/20/16 12:02 Dose: 200 mg Aspirin (Asa -) 81 mg PO DAILY [facility] Last Admin: 03/20/16 12:02 Dose: 81 mg Atorvastatin Calcium (Lipitor -) 20 mg PO HS [facility] Last Admin: 03/20/16 21:49 Dose: 20 mg Carvedilol (Coreg -) 3.125 mg PO BID [facility] Last Admin: 03/20/16 21:49 Dose: 3.125 mg Digoxin (Lanoxin -) 0.125 mg PO DAILY [facility] Last Admin: 03/20/16 12:03 Dose: 0.125 mg Furosemide (Lasix -) 80 mg PO DAILY [facility] Mometasone Furoate (Asmanex 220mcg -) 1 puff IH HS [facility] Last Admin: 03/20/16 21:49 Dose: 1 puff Ramipril (Altace -) 2.5 mg PO DAILY [facility] Last Admin: 03/20/16 12:02 Dose: 2.5 mg Ranitidine HCl (Zantac -) 150 mg PO DAILY [facility] Last Admin: 03/20/16 12:03 Dose: 150 mg Warfarin Sodium (Coumadin -) 3 mg PO NOW ONE Stop: 03/21/16 09:21 - Objective Vital Signs: Vital Signs Temperature 98.2 F 03/21/16 06:00 Pulse Rate 80 03/21/16 06:00 Respiratory Rate 18 03/21/16 06:00 Blood Pressure 102/59 03/21/16 06:00 O2 Sat by Pulse Oximetry (%) 98 03/20/16 21:00 Constitutional: Yes: No Distress Cardiovascular: Yes: Regular Rate and Rhythm (paced) Respiratory: Yes: CTA Bilaterally Gastrointestinal: Yes: Soft Edema: Yes Edema: LLE: 1+, RLE: 1+ Neurological: Yes: Alert ...Motor Strength: WNL Labs: CBC, BMP 03/20/16 06:50 03/20/16 06:50 INR, PTT INR 1.94 (0.82-1.09) H 03/21/16 06:00 Laboratory Tests 03/20/16 03/20/16 03/21/16 06:50 06:50 06:00 WBC 5.7 Hgb 11.4 L Plt Count 164 INR 1.94 H Potassium 3.5 Creatinine 1.0 - ....Imaging EKG: Image Reviewed Assessment/Plan Assessment/Plan Acute on chronic systolic CHF, underlying non-ischemic CM, s/p ICD Severe s/p TAVR Chronic AF on coumadin Mitral regurgitation Plan: Clinically improved Can discharge with Lasix 80mg daily- close clinical f/u in 1 week Cont ramipril, coreg, digoxin, amiodarone, asa, lipitor Mild troponin elevation likely secondary to acute chf No Afib with RVR on tele INR goal 2-3 for AF: INR 1.9 today (will dose with 3mg x1 today) and can resume usual home dose tomorrow. Can have INR follow up Saturday in office.
[2016-03-21] MEDS ORDERED: WARFARIN NA 3 MG TABLET PO ONE (09:50)
[2016-03-21] MEDS: CARVEDILOL 3.125 MG TABLET (FP) PO SCH (09:51)
[2016-03-21] MEDS: DIGOXIN 0.125 MG TABLET (FP) PO SCH (09:52)
[2016-03-21] MEDS: RAMIPRIL 2.5 MG CAPSULE (FP) PO SCH (09:52)
[2016-03-21] MEDS: AMIODARONE HCL 200 MG TABLET (FP) PO SCH (09:52)
[2016-03-21] MEDS: RANITIDINE HCL 150 MG TABLET (FP) PO SCH (09:52)
[2016-03-21] MEDS: ASPIRIN 81 MG CHEWABLE TABLETS PO SCH (09:52)
[2016-03-21] MEDS ORDERED: FUROSEMIDE 40 MG TABLET (FP) PO SCH (10:00)
[2016-03-21] MEDS: ALBUTEROL SO4 2.5/IPRATROPIUM 0.5 INH SOL 3 ML VIAL.NEB. NEB PRN (10:12)
--- NOTE | 2016-03-21 12:09 | DS ---
Physical Examination Vital Signs: Vital Signs Temperature 98.2 F 03/21/16 10:00 Pulse Rate 79 03/21/16 10:00 Respiratory Rate 18 03/21/16 10:00 Blood Pressure 98/54 03/21/16 10:00 O2 Sat by Pulse Oximetry (%) 96 03/21/16 09:00 Constitutional: Yes: Well Nourished Neck: Yes: Supple Cardiovascular: Yes: WNL, Regular Rate and Rhythm Respiratory: Yes: WNL, Regular, CTA Bilaterally Edema: LLE: 1+, RLE: 1+ Labs: CBC, BMP 03/20/16 06:50 03/20/16 06:50 Discharge Summary Reason For Visit: CHF EXACERBATION, ORTHOPNEA, ASTHMA Current Active Problems Asthma (Acute) CHF exacerbation (Acute) Elevated liver enzymes (Acute) Elevated troponin (Acute) Orthopnea (Acute) Condition: Fair - Instructions Diet, Activity, Other Instructions: 2 gram sodium diet Referrals: John Sahu MD [Primary Care Provider] - Disposition: HOME - Home Medications Comprehensive Discharge Medication List: Ambulatory Orders Amiodarone HCl [Cordarone -] 200 mg PO DAILY 06/11/15 Atorvastatin Ca [Lipitor] 20 mg PO ASDIR 06/11/15 Carvedilol 3.125 mg PO DAILY 06/11/15 Digoxin [Lanoxin -] 0.125 mg PO DAILY 06/11/15 Fluticasone Propionate [Flovent Diskus] 100 mcg IH DAILY 06/11/15 Warfarin Sodium [Coumadin] 2 mg PO [facility] 06/11/15 Aspirin [ASA -] 81 mg PO DAILY 07/04/15 Albuterol Sulfate Inhaler - [Ventolin HFA Inhaler -] 1 - 2 inh PO QID 03/12/16 Famotidine 20 mg PO DAILY 03/12/16 Amiodarone HCl [Cordarone -] 200 mg PO DAILY tablet 03/21/16 Atorvastatin Ca [Lipitor] 20 mg PO HS tablet 03/21/16 Carvedilol [Coreg -] 3.125 mg PO BID tablet 03/21/16 Digoxin [Lanoxin -] 0.125 mg PO DAILY tablet 03/21/16 Furosemide [Lasix -] 80 mg PO DAILY #30 tablet 03/21/16 Ramipril [Altace] 2.5 mg PO DAILY #30 capsule 03/21/16
[2016-03-21 13:52] VITALS: BP 93/58; PULSE 78; TEMP 97.9
== END 2016-03-21 14:00 | disposition home or self-care (01) | DRG 291 ==
LOC: JER 08:46 → JERBED 11:40 → J4S 15:50
PROVIDERS: ADMIT Internal Medicine; ATTEND Internal Medicine
DX: I13.0 Hypertensive heart and chronic kidney disease with heart failure and stage 1 through stage 4 chronic kidney disease, or unspecified chronic kidney disease (principal); I50.23 Acute on chronic systolic (congestive) heart failure; I42.8 Other cardiomyopathies; E78.5 Hyperlipidemia, unspecified; J45.909 Unspecified asthma, uncomplicated; Z95.0 Presence of cardiac pacemaker; I48.2 Chronic atrial fibrillation; Z79.01 Long term (current) use of anticoagulants; Z95.2 Presence of prosthetic heart valve; I25.10 Atherosclerotic heart disease of native coronary artery without angina pectoris; I27.2 Other secondary pulmonary hypertension; N18.9 Chronic kidney disease, unspecified
CPT/HCPCS: 36415; 71010-TC; 71260-TC; 80048; 80053; 80162; 81003; 82550; 82553; 83735; 83880; 84484; 85025; 85610; 93005; 93010; 93306-TC; 94640; 99285-25

== ENCOUNTER 2021-02-03 17:04 | Inpatient (IN) | payer OTHER ==
[2021-02-03 17:32] VITALS: BMI 31.3
[2021-02-03] MEDS ORDERED: FUROSEMIDE 40 MG/4 ML INJECTABLE VIAL IVPUSH ONE (18:23)
[2021-02-03] MEDS ORDERED: FUROSEMIDE 40 MG/4 ML INJECTABLE VIAL ONE (18:26)
[2021-02-03] MEDS ORDERED: DOCUSATE SODIUM 100 MG CAPSULE (FP) PO ONE ×2 (19:05→19:30)
[2021-02-03 19:14] LABS: BASO % 0.7 % (0-2.0); EOS % 1.5 % (0-4.5); HEMATOCRIT 33.6 % (35.4-49); HEMOGLOBIN 11.5 GM/dL (11.7-16.9); LYMPH % 26.6 % (8-40); MCH 32.2 pg (25.7-33.7); MCHC 34.2 g/dl (32.0-35.9); MEAN PLT VOLUME 11.4 fl (7.5-11.1); MONO % 14.2 % (3.8-10.2); PLATELET COUNT 229 10^3/uL (134-434); RBC 3.57 M/mm3 (4.00-5.60); RDW 16.4 % (11.9-15.9); WHITE BLOOD COUNT 5.4 K/mm3 (4.0-10.0)
[2021-02-03 19:19] LABS: INR 3.76 (0.83-1.09); PROTHROMBIN TIME (PATIENT) 42.7 SEC (9.7-13.0)
[2021-02-03 19:22] LABS: ACTIVATED PTT 43.7 SECONDS (25.2-36.5)
[2021-02-03 19:35] LABS: ALBUMIN 3.3 g/dl (3.4-5.0); BLOOD UREA NITROGEN 37.4 mg/dL (7-18); CALCIUM 8.6 mg/dL (8.5-10.1); MAGNESIUM 2.7 mg/dL (1.8-2.4)
[2021-02-03 19:38] LABS: CREATININE 1.4 mg/dL (0.55-1.3); PHOSPHOROUS 3.8 mg/dL (2.5-4.9)
[2021-02-03 19:40] LABS: BILIRUBIN,TOTAL 0.8 mg/dL (0.2-1); TOT PROT 7.1 g/dl (6.4-8.2)
[2021-02-03 19:43] LABS: N-TERMINAL BNP 4619.9 pg/ml (5-450)
[2021-02-03] MEDS ORDERED: ATORVASTATIN CA 20 MG TABLET (FP) ONE (22:16)
[2021-02-03] MEDS ORDERED: CARVEDILOL 3.125 MG TABLET (FP) ONE (22:16)
[2021-02-03] MEDS ORDERED: SENNOSIDES 8.6MG TABLET (FP) PO ONE (22:16)
[2021-02-03] MEDS: CARVEDILOL 3.125 MG TABLET (FP) PO SCH (22:30)
[2021-02-03] MEDS: SENNOSIDES 8.6MG TABLET (FP) PO SCH (22:30)
[2021-02-03] MEDS: ATORVASTATIN CA 20 MG TABLET (FP) PO SCH (22:30)
[2021-02-04] MEDS: FUROSEMIDE 40 MG/4 ML INJECTABLE VIAL IVPUSH SCH ×2 (05:09→13:54)
[2021-02-04 08:13] LABS: BASO % 0.2 % (0-2.0); EOS % 1.9 % (0-4.5); HEMATOCRIT 32.7 % (35.4-49); HEMOGLOBIN 10.9 GM/dL (11.7-16.9); LYMPH % 24.1 % (8-40); MCH 31.6 pg (25.7-33.7); MCHC 33.2 g/dl (32.0-35.9); MEAN CELL VOLUME 95.1 fl (80-96); MEAN PLT VOLUME 10.8 fl (7.5-11.1); MONO % 11.3 % (3.8-10.2); NEUT % 62.5 % (42.8-82.8); PLATELET COUNT 171 10^3/uL (134-434); RBC 3.44 M/mm3 (4.00-5.60); RDW 15.8 % (11.9-15.9); WHITE BLOOD COUNT 5.2 K/mm3 (4.0-10.0)
[2021-02-04 08:26] LABS: CALCIUM 8.7 mg/dL (8.5-10.1)
[2021-02-04 08:27] LABS: ALBUMIN 3.3 g/dl (3.4-5.0)
[2021-02-04 08:30] LABS: CREATININE 1.3 mg/dL (0.55-1.3)
[2021-02-04 08:31] LABS: BILIRUBIN,TOTAL 0.9 mg/dL (0.2-1)
[2021-02-04 08:32] LABS: TOT PROT 6.6 g/dl (6.4-8.2)
[2021-02-04] MEDS: AMIODARONE HCL 200 MG TABLET PO SCH (09:28)
[2021-02-04] MEDS ORDERED: FUROSEMIDE 40 MG TABLET (FP) PO SCH (10:00)
[2021-02-04] MEDS ORDERED: ENOXAPARIN NA (PORCINE) 40 MG/0.4 ML DISP.SYRIN SQ SCH (10:00)
[2021-02-04] MEDS ORDERED: ASPIRIN 81 MG CHEWABLE TABLETS PO SCH (10:00)
[2021-02-04] MEDS: CARVEDILOL 3.125 MG TABLET (FP) PO SCH ×2 (10:36→21:54)
[2021-02-04] MEDS: DIGOXIN 0.125 MG TABLET PO SCH (13:49)
[2021-02-04] MEDS: SENNOSIDES 8.6MG TABLET (FP) PO SCH (21:54)
[2021-02-04] MEDS: ATORVASTATIN CA 20 MG TABLET (FP) PO SCH (21:54)
[2021-02-05] MEDS: FUROSEMIDE 40 MG/4 ML INJECTABLE VIAL IVPUSH SCH ×3 (06:14→17:18)
[2021-02-05 07:28] LABS: INR 2.67 (0.83-1.09); PROTHROMBIN TIME (PATIENT) 31.6 SEC (9.7-13.0)
[2021-02-05 07:37] LABS: BLOOD UREA NITROGEN 33.6 mg/dL (7-18); CALCIUM 8.4 mg/dL (8.5-10.1)
[2021-02-05 07:38] LABS: ALBUMIN 3.3 g/dl (3.4-5.0)
[2021-02-05 07:39] LABS: BASO % 0.3 % (0-2.0); EOS % 2.1 % (0-4.5); HEMATOCRIT 33.8 % (35.4-49); HEMOGLOBIN 11.4 GM/dL (11.7-16.9); LYMPH % 21.4 % (8-40); MCH 32.1 pg (25.7-33.7); MCHC 33.6 g/dl (32.0-35.9); MEAN CELL VOLUME 95.5 fl (80-96); MEAN PLT VOLUME 10.3 fl (7.5-11.1); MONO % 13.8 % (3.8-10.2); NEUT % 62.4 % (42.8-82.8); PLATELET COUNT 165 10^3/uL (134-434); RBC 3.54 M/mm3 (4.00-5.60); RDW 15.8 % (11.9-15.9); WHITE BLOOD COUNT 5.1 K/mm3 (4.0-10.0)
[2021-02-05 07:40] LABS: CREATININE 1.3 mg/dL (0.55-1.3)
[2021-02-05 07:42] LABS: BILIRUBIN,TOTAL 1.2 mg/dL (0.2-1); TOT PROT 6.8 g/dl (6.4-8.2)
[2021-02-05] MEDS: DIGOXIN 0.125 MG TABLET PO SCH (09:32)
[2021-02-05] MEDS: AMIODARONE HCL 200 MG TABLET PO SCH (09:32)
[2021-02-05] MEDS: CARVEDILOL 3.125 MG TABLET (FP) PO SCH ×2 (09:33→21:27)
[2021-02-05] MEDS: WARFARIN NA 2.5 MG TABLET PO SCH (17:17)
[2021-02-05] MEDS: ATORVASTATIN CA 20 MG TABLET (FP) PO SCH (21:27)
[2021-02-05] MEDS: SENNOSIDES 8.6MG TABLET (FP) PO SCH (21:27)
[2021-02-06] MEDS: SACUBITRIL/VALSARTAN 24 MG-26 MG TABLET PO SCH ×3 (00:38→12:49)
[2021-02-06] MEDS: FUROSEMIDE 40 MG/4 ML INJECTABLE VIAL IVPUSH SCH (06:11)
[2021-02-06 07:11] LABS: BASO % 0.4 % (0-2.0); EOS % 2.1 % (0-4.5); HEMATOCRIT 33.4 % (35.4-49); HEMOGLOBIN 11.2 GM/dL (11.7-16.9); LYMPH % 17.1 % (8-40); MCH 31.9 pg (25.7-33.7); MCHC 33.4 g/dl (32.0-35.9); MEAN CELL VOLUME 95.6 fl (80-96); MEAN PLT VOLUME 10.7 fl (7.5-11.1); MONO % 15.8 % (3.8-10.2); NEUT % 64.6 % (42.8-82.8); PLATELET COUNT 157 10^3/uL (134-434); WHITE BLOOD COUNT 5.2 K/mm3 (4.0-10.0)
[2021-02-06 07:17] LABS: INR 2.63 (0.83-1.09); PROTHROMBIN TIME (PATIENT) 29.8 SEC (9.7-13.0)
[2021-02-06 07:34] LABS: CALCIUM 8.6 mg/dL (8.5-10.1)
[2021-02-06 07:35] LABS: BLOOD UREA NITROGEN 26.8 mg/dL (7-18)
[2021-02-06 07:38] LABS: CREATININE 1.2 mg/dL (0.55-1.3)
[2021-02-06 07:39] LABS: BILIRUBIN,TOTAL 1.4 mg/dL (0.2-1); TOT PROT 6.2 g/dl (6.4-8.2)
[2021-02-06] MEDS ORDERED: PT OWN MED DRAWER 7, Y5N ONE (09:04)
[2021-02-06] MEDS: DIGOXIN 0.125 MG TABLET PO SCH (09:35)
[2021-02-06] MEDS: AMIODARONE HCL 200 MG TABLET PO SCH (09:35)
[2021-02-06] MEDS: CARVEDILOL 3.125 MG TABLET (FP) PO SCH ×2 (09:35→21:06)
[2021-02-06] MEDS: POLYETHYLENE GLYCOL (HEALTHYLAX) 3350 17 GM PACKET PO SCH (12:42)
[2021-02-06] MEDS: DOCUSATE SODIUM 100 MG CAPSULE (FP) PO SCH ×2 (14:15→21:06)
[2021-02-06] MEDS: WARFARIN NA 2.5 MG TABLET PO SCH (17:30)
[2021-02-06] MEDS: SENNOSIDES 8.6MG TABLET (FP) PO SCH (21:06)
[2021-02-06] MEDS: ATORVASTATIN CA 20 MG TABLET (FP) PO SCH (21:06)
[2021-02-07] MEDS: SACUBITRIL/VALSARTAN 24 MG-26 MG TABLET PO SCH ×2 (00:49→10:01)
[2021-02-07] MEDS: DOCUSATE SODIUM 100 MG CAPSULE (FP) PO SCH ×2 (06:15→14:50)
[2021-02-07] MEDS ORDERED: FUROSEMIDE 40 MG TABLET (FP) PO SCH (10:00)
[2021-02-07] MEDS: POLYETHYLENE GLYCOL (HEALTHYLAX) 3350 17 GM PACKET PO SCH (10:00)
[2021-02-07] MEDS: DIGOXIN 0.125 MG TABLET PO SCH (10:01)
[2021-02-07] MEDS: AMIODARONE HCL 200 MG TABLET PO SCH (10:01)
[2021-02-07] MEDS: CARVEDILOL 3.125 MG TABLET (FP) PO SCH (10:01)
[2021-02-07 15:23] VITALS: BP 97/58; PULSE 66; TEMP 97.7
[2021-02-07] MEDS: WARFARIN NA 2.5 MG TABLET PO SCH (17:36)
== END 2021-02-07 19:24 | disposition home or self-care (01) | DRG 291 ==
LOC: JER 17:04 → JERBED 18:34 → J4W 02-04 04:10
PROVIDERS: ADMIT Internal Medicine; ATTEND Internal Medicine
DX: I13.0 Hypertensive heart and chronic kidney disease with heart failure and stage 1 through stage 4 chronic kidney disease, or unspecified chronic kidney disease (principal); I50.43 Acute on chronic combined systolic (congestive) and diastolic (congestive) heart failure; I24.8 Other forms of acute ischemic heart disease; I48.20 Chronic atrial fibrillation, unspecified; N17.9 Acute kidney failure, unspecified; E87.1 Hypo-osmolality and hyponatremia; J44.1 Chronic obstructive pulmonary disease with (acute) exacerbation; J81.1 Chronic pulmonary edema; I48.91 Unspecified atrial fibrillation; I42.8 Other cardiomyopathies; I27.20 Pulmonary hypertension, unspecified; E78.5 Hyperlipidemia, unspecified; N18.9 Chronic kidney disease, unspecified; I42.0 Dilated cardiomyopathy
CPT/HCPCS: 36415; 71045-TC-FY; 80053; 80061; 80162; 82550; 82553; 83036; 83735; 83880; 84100; 84443; 84484; 85025; 85610; 85730; 93005; 93010; 93306-TC; 99285-25; C9803; U0003; U0005

== ENCOUNTER 2021-02-10 19:19 | Inpatient (IN) | payer OTHER ==
[2021-02-10 19:30] VITALS: BMI 34.4
[2021-02-10] MEDS ORDERED: FUROSEMIDE 40 MG/4 ML INJECTABLE VIAL IVPUSH ONE (20:08)
[2021-02-10] MEDS ORDERED: FUROSEMIDE 40 MG/4 ML INJECTABLE VIAL ONE (20:35)
[2021-02-10 20:48] LABS: HEMATOCRIT 34.1 % (35.4-49); HEMOGLOBIN 11.5 GM/dL (11.7-16.9); MCH 31.6 pg (25.7-33.7); MCHC 33.7 g/dl (32.0-35.9); MEAN CELL VOLUME 93.8 fl (80-96); MEAN PLT VOLUME 10.2 fl (7.5-11.1); PLATELET COUNT 166 10^3/uL (134-434); RBC 3.63 M/mm3 (4.00-5.60); RDW 15.7 % (11.9-15.9); WHITE BLOOD COUNT 5.5 K/mm3 (4.0-10.0)
[2021-02-10 20:55] LABS: INR 2.31 (0.83-1.09); PROTHROMBIN TIME (PATIENT) 27.2 SEC (9.7-13.0)
[2021-02-10 20:58] LABS: ACTIVATED PTT 29.1 SECONDS (25.2-36.5); ALBUMIN 3.1 g/dl (3.4-5.0); BLOOD UREA NITROGEN 27.3 mg/dL (7-18); CALCIUM 8.2 mg/dL (8.5-10.1); MAGNESIUM 2.1 mg/dL (1.8-2.4)
[2021-02-10 21:01] LABS: CREATININE 1.3 mg/dL (0.55-1.3)
[2021-02-10 21:03] LABS: TOT PROT 6.6 g/dl (6.4-8.2)
[2021-02-10 21:06] LABS: N-TERMINAL BNP 6817.1 pg/ml (5-450)
[2021-02-10 21:32] LABS: ANISOCYTOSIS 2+; MACROCYTOSIS 1+; OVALOCYTE 1+; PLATELET ESTIMATE NORMAL; TARGET CELLS 1+
[2021-02-10 21:39] LABS: BILIRUBIN,TOTAL 0.9 mg/dL (0.2-1)
[2021-02-11] MEDS ORDERED: DOCUSATE SODIUM 100 MG CAPSULE (FP) PO ONE ×3 (05:39→21:49)
[2021-02-11] MEDS: DOCUSATE SODIUM 100 MG CAPSULE (FP) PO SCH ×3 (05:43→22:20)
[2021-02-11 08:36] LABS: HEMOGLOBIN 11.6 GM/dL (11.7-16.9); MCH 31.8 pg (25.7-33.7); MCHC 34.1 g/dl (32.0-35.9); MEAN CELL VOLUME 93.4 fl (80-96); MEAN PLT VOLUME 10.4 fl (7.5-11.1); PLATELET COUNT 151 10^3/uL (134-434); RBC 3.64 M/mm3 (4.00-5.60); RDW 15.4 % (11.9-15.9); WHITE BLOOD COUNT 5.9 K/mm3 (4.0-10.0)
[2021-02-11 08:40] LABS: INR 2.22 (0.83-1.09); PROTHROMBIN TIME (PATIENT) 25.1 SEC (9.7-13.0)
[2021-02-11 08:46] LABS: ALBUMIN 3.2 g/dl (3.4-5.0); BLOOD UREA NITROGEN 26.7 mg/dL (7-18); CALCIUM 8.6 mg/dL (8.5-10.1)
[2021-02-11 08:49] LABS: CREATININE 1.1 mg/dL (0.55-1.3)
[2021-02-11 08:50] LABS: BILIRUBIN,TOTAL 0.9 mg/dL (0.2-1)
[2021-02-11 08:51] LABS: TOT PROT 6.8 g/dl (6.4-8.2)
[2021-02-11] MEDS ORDERED: DIGOXIN 0.125 MG TABLET ONE (10:51)
[2021-02-11] MEDS ORDERED: ASPIRIN 81 MG CHEWABLE TABLETS ONE (10:51)
[2021-02-11] MEDS ORDERED: CARVEDILOL 3.125 MG TABLET (FP) ONE ×2 (10:51→21:49)
[2021-02-11] MEDS ORDERED: AMIODARONE HCL 200 MG TABLET ONE (10:52)
[2021-02-11] MEDS: CARVEDILOL 3.125 MG TABLET (FP) PO SCH ×2 (10:57→22:20)
[2021-02-11] MEDS: ASPIRIN 81 MG CHEWABLE TABLETS PO SCH (10:57)
[2021-02-11] MEDS: DIGOXIN 0.125 MG TABLET PO SCH (10:57)
[2021-02-11] MEDS: AMIODARONE HCL 200 MG TABLET PO SCH (10:57)
[2021-02-11] MEDS: SACUBITRIL/VALSARTAN 24 MG-26 MG TABLET PO SCH ×2 (10:57→22:20)
[2021-02-11 11:26] LABS: ANISOCYTOSIS 0; HELMET CELLS 0; HOWELL-JOLLY BODIES 0; MACROCYTOSIS 0; OVALOCYTE 0; PLATELET ESTIMATE DECREASED; ROULEAU 0; SICKELED CELLS 0; TARGET CELLS 0; TEAR DROP CELLS 0; TOXIC GRANULATION 0
[2021-02-11] MEDS ORDERED: FUROSEMIDE 40 MG/4 ML INJECTABLE VIAL ONE (14:30)
[2021-02-11] MEDS: FUROSEMIDE 40 MG/4 ML INJECTABLE VIAL IVPUSH SCH (14:42)
[2021-02-11] MEDS: WARFARIN NA 2.5 MG TABLET PO SCH (18:54)
[2021-02-11] MEDS ORDERED: ATORVASTATIN CA 20 MG TABLET (FP) ONE (21:49)
[2021-02-11] MEDS: ATORVASTATIN CA 20 MG TABLET (FP) PO SCH (22:20)
[2021-02-12] MEDS: FUROSEMIDE 40 MG/4 ML INJECTABLE VIAL IVPUSH SCH ×2 (05:33→13:06)
[2021-02-12] MEDS: DOCUSATE SODIUM 100 MG CAPSULE (FP) PO SCH ×3 (05:33→21:54)
[2021-02-12 06:55] LABS: CALCIUM 8.1 mg/dL (8.5-10.1)
[2021-02-12 06:56] LABS: BLOOD UREA NITROGEN 25.5 mg/dL (7-18)
[2021-02-12 06:59] LABS: CREATININE 1.2 mg/dL (0.55-1.3)
[2021-02-12 07:01] LABS: INR 2.32 (0.83-1.09); PROTHROMBIN TIME (PATIENT) 26.2 SEC (9.7-13.0)
[2021-02-12 07:54] LABS: CALCIUM 8.3 mg/dL (8.5-10.1)
[2021-02-12 07:56] LABS: URIC ACID 4.2 mg/dL (2.6-7.2)
[2021-02-12 07:57] LABS: CREATININE 1.2 mg/dL (0.55-1.3)
[2021-02-12] MEDS: ASPIRIN 81 MG CHEWABLE TABLETS PO SCH (10:00)
[2021-02-12] MEDS: AMIODARONE HCL 200 MG TABLET PO SCH (10:02)
[2021-02-12] MEDS: SACUBITRIL/VALSARTAN 24 MG-26 MG TABLET PO SCH ×2 (10:02→21:54)
[2021-02-12] MEDS: CARVEDILOL 3.125 MG TABLET (FP) PO SCH ×2 (10:38→21:54)
[2021-02-12] MEDS ORDERED: PT OWN MED DRAWER 7, Y5N ONE (12:46)
[2021-02-12] MEDS: DIGOXIN 0.125 MG TABLET PO SCH (13:07)
[2021-02-12] MEDS: WARFARIN NA 2.5 MG TABLET PO SCH (17:15)
[2021-02-12] MEDS: ATORVASTATIN CA 20 MG TABLET (FP) PO SCH (21:54)
[2021-02-13 05:36] LABS: PHOSPHOROUS 3.7 mg/dL (2.5-4.9)
[2021-02-13] MEDS: DOCUSATE SODIUM 100 MG CAPSULE (FP) PO SCH ×3 (06:00→21:28)
[2021-02-13] MEDS: FUROSEMIDE 40 MG/4 ML INJECTABLE VIAL IVPUSH SCH ×2 (06:01→14:09)
[2021-02-13 07:35] LABS: INR 2.03 (0.83-1.09); PROTHROMBIN TIME (PATIENT) 23.9 SEC (9.7-13.0)
[2021-02-13 08:14] LABS: CALCIUM 8.3 mg/dL (8.5-10.1)
[2021-02-13 08:15] LABS: BLOOD UREA NITROGEN 24.4 mg/dL (7-18)
[2021-02-13 08:18] LABS: CREATININE 1.1 mg/dL (0.55-1.3)
[2021-02-13] MEDS ORDERED: PT OWN MED DRAWER 7, Y5N ONE ×2 (09:59→20:51)
[2021-02-13] MEDS: AMIODARONE HCL 200 MG TABLET PO SCH (10:04)
[2021-02-13] MEDS: ASPIRIN 81 MG CHEWABLE TABLETS PO SCH (10:04)
[2021-02-13] MEDS: DIGOXIN 0.125 MG TABLET PO SCH (10:05)
[2021-02-13] MEDS: SACUBITRIL/VALSARTAN 24 MG-26 MG TABLET PO SCH ×2 (10:05→21:29)
[2021-02-13] MEDS: CARVEDILOL 3.125 MG TABLET (FP) PO SCH ×2 (10:05→21:28)
[2021-02-13] MEDS: SPIRONOLACTONE 25 MG TABLET PO SCH (12:08)
[2021-02-13] MEDS: WARFARIN NA 2.5 MG TABLET PO SCH (17:11)
[2021-02-13] MEDS: ATORVASTATIN CA 20 MG TABLET (FP) PO SCH (21:28)
[2021-02-14] MEDS: DOCUSATE SODIUM 100 MG CAPSULE (FP) PO SCH ×3 (06:10→21:42)
[2021-02-14] MEDS: FUROSEMIDE 40 MG/4 ML INJECTABLE VIAL IVPUSH SCH ×2 (06:10→14:38)
[2021-02-14] MEDS ORDERED: PT OWN MED DRAWER 7, Y5N ONE ×2 (09:49→21:04)
[2021-02-14] MEDS: DIGOXIN 0.125 MG TABLET PO SCH (10:22)
[2021-02-14] MEDS: CARVEDILOL 3.125 MG TABLET (FP) PO SCH ×2 (10:22→21:42)
[2021-02-14] MEDS: ASPIRIN 81 MG CHEWABLE TABLETS PO SCH (10:22)
[2021-02-14] MEDS: SPIRONOLACTONE 25 MG TABLET PO SCH (10:23)
[2021-02-14] MEDS: AMIODARONE HCL 200 MG TABLET PO SCH (10:23)
[2021-02-14] MEDS: SACUBITRIL/VALSARTAN 24 MG-26 MG TABLET PO SCH ×2 (10:23→21:42)
[2021-02-14 14:25] LABS: INR 2.36 (0.83-1.09); PROTHROMBIN TIME (PATIENT) 27.9 SEC (9.7-13.0)
[2021-02-14 15:51] LABS: ALBUMIN 2.9 g/dl (3.4-5.0); BLOOD UREA NITROGEN 22.5 mg/dL (7-18); CALCIUM 8.6 mg/dL (8.5-10.1)
[2021-02-14 15:54] LABS: CREATININE 1.1 mg/dL (0.55-1.3)
[2021-02-14 15:55] LABS: BILIRUBIN,TOTAL 0.7 mg/dL (0.2-1)
[2021-02-14 15:56] LABS: TOT PROT 6.6 g/dl (6.4-8.2)
[2021-02-14] MEDS: WARFARIN NA 2.5 MG TABLET PO SCH (18:32)
[2021-02-14] MEDS: ATORVASTATIN CA 20 MG TABLET (FP) PO SCH (21:42)
[2021-02-15] MEDS: FUROSEMIDE 40 MG/4 ML INJECTABLE VIAL IVPUSH SCH ×2 (06:19→13:27)
[2021-02-15] MEDS: DOCUSATE SODIUM 100 MG CAPSULE (FP) PO SCH ×3 (06:19→21:45)
[2021-02-15 07:36] LABS: INR 2.59 (0.83-1.09); PROTHROMBIN TIME (PATIENT) 30.6 SEC (9.7-13.0)
[2021-02-15 07:47] LABS: CALCIUM 8.6 mg/dL (8.5-10.1)
[2021-02-15 07:48] LABS: ALBUMIN 2.9 g/dl (3.4-5.0); BLOOD UREA NITROGEN 20.3 mg/dL (7-18)
[2021-02-15 07:52] LABS: TOT PROT 6.5 g/dl (6.4-8.2)
[2021-02-15 07:53] LABS: BILIRUBIN,TOTAL 0.7 mg/dL (0.2-1)
[2021-02-15] MEDS: AMIODARONE HCL 200 MG TABLET PO SCH (09:40)
[2021-02-15] MEDS: DIGOXIN 0.125 MG TABLET PO SCH (09:41)
[2021-02-15] MEDS: SACUBITRIL/VALSARTAN 24 MG-26 MG TABLET PO SCH ×2 (09:41→21:45)
[2021-02-15] MEDS: SPIRONOLACTONE 25 MG TABLET PO SCH (09:41)
[2021-02-15] MEDS: ASPIRIN 81 MG CHEWABLE TABLETS PO SCH (09:41)
[2021-02-15] MEDS: CARVEDILOL 3.125 MG TABLET (FP) PO SCH ×2 (11:20→21:45)
[2021-02-15] MEDS: WARFARIN NA 2.5 MG TABLET PO SCH (17:26)
[2021-02-15] MEDS ORDERED: PT OWN MED DRAWER 7, Y5N ONE (21:29)
[2021-02-15] MEDS: ATORVASTATIN CA 20 MG TABLET (FP) PO SCH (21:45)
[2021-02-16] MEDS: DOCUSATE SODIUM 100 MG CAPSULE (FP) PO SCH ×3 (05:53→22:14)
[2021-02-16] MEDS: FUROSEMIDE 40 MG/4 ML INJECTABLE VIAL IVPUSH SCH ×2 (05:53→13:45)
[2021-02-16 07:07] LABS: BASO % 0.6 % (0-2.0); EOS % 0.9 % (0-4.5); HEMATOCRIT 34.5 % (35.4-49); HEMOGLOBIN 11.5 GM/dL (11.7-16.9); LYMPH % 31.6 % (8-40); MCH 31.4 pg (25.7-33.7); MCHC 33.3 g/dl (32.0-35.9); MEAN CELL VOLUME 94.2 fl (80-96); MEAN PLT VOLUME 9.4 fl (7.5-11.1); MONO % 12.6 % (3.8-10.2); NEUT % 54.3 % (42.8-82.8); PLATELET COUNT 189 10^3/uL (134-434); RBC 3.66 M/mm3 (4.00-5.60); RDW 15.6 % (11.9-15.9); WHITE BLOOD COUNT 6.1 K/mm3 (4.0-10.0)
[2021-02-16 07:09] LABS: INR 2.84 (0.83-1.09); PROTHROMBIN TIME (PATIENT) 32.1 SEC (9.7-13.0)
[2021-02-16 07:18] LABS: ALBUMIN 2.8 g/dl (3.4-5.0); BLOOD UREA NITROGEN 21.3 mg/dL (7-18); CALCIUM 8.4 mg/dL (8.5-10.1)
[2021-02-16 07:21] LABS: CREATININE 1.1 mg/dL (0.55-1.3)
[2021-02-16 07:22] LABS: BILIRUBIN,TOTAL 0.8 mg/dL (0.2-1)
[2021-02-16 07:23] LABS: TOT PROT 6.3 g/dl (6.4-8.2)
[2021-02-16] MEDS ORDERED: PT OWN MED DRAWER 7, Y5N ONE (08:43)
[2021-02-16] MEDS: SPIRONOLACTONE 25 MG TABLET PO SCH (09:01)
[2021-02-16] MEDS: CARVEDILOL 3.125 MG TABLET (FP) PO SCH ×2 (09:01→22:14)
[2021-02-16] MEDS: SACUBITRIL/VALSARTAN 24 MG-26 MG TABLET PO SCH ×2 (09:01→22:14)
[2021-02-16] MEDS: AMIODARONE HCL 200 MG TABLET PO SCH (09:02)
[2021-02-16] MEDS: WARFARIN NA 2.5 MG TABLET PO SCH (18:33)
[2021-02-16] MEDS: ATORVASTATIN CA 20 MG TABLET (FP) PO SCH (22:14)
[2021-02-17] MEDS: DOCUSATE SODIUM 100 MG CAPSULE (FP) PO SCH ×3 (06:24→21:35)
[2021-02-17] MEDS: FUROSEMIDE 40 MG/4 ML INJECTABLE VIAL IVPUSH SCH ×2 (06:24→15:46)
[2021-02-17 07:05] LABS: BASO % 0.7 % (0-2.0); EOS % 1.6 % (0-4.5); HEMOGLOBIN 11.7 GM/dL (11.7-16.9); MCH 31.3 pg (25.7-33.7); MCHC 33.3 g/dl (32.0-35.9); MEAN CELL VOLUME 93.9 fl (80-96); MEAN PLT VOLUME 9.2 fl (7.5-11.1); MONO % 13.1 % (3.8-10.2); NEUT % 49.6 % (42.8-82.8); PLATELET COUNT 183 10^3/uL (134-434); RBC 3.73 M/mm3 (4.00-5.60); RDW 16.2 % (11.9-15.9); WHITE BLOOD COUNT 6.3 K/mm3 (4.0-10.0)
[2021-02-17 07:12] LABS: INR 2.77 (0.83-1.09); PROTHROMBIN TIME (PATIENT) 32.7 SEC (9.7-13.0)
[2021-02-17 07:38] LABS: CALCIUM 8.7 mg/dL (8.5-10.1)
[2021-02-17 07:39] LABS: ALBUMIN 2.8 g/dl (3.4-5.0); BLOOD UREA NITROGEN 21.3 mg/dL (7-18)
[2021-02-17 07:43] LABS: BILIRUBIN,TOTAL 0.7 mg/dL (0.2-1); TOT PROT 6.4 g/dl (6.4-8.2)
[2021-02-17] MEDS: AMIODARONE HCL 200 MG TABLET PO SCH (09:35)
[2021-02-17] MEDS: SPIRONOLACTONE 25 MG TABLET PO SCH (09:35)
[2021-02-17] MEDS ORDERED: PT OWN MED DRAWER 7, Y5N ONE ×2 (12:05→21:10)
[2021-02-17] MEDS: SACUBITRIL/VALSARTAN 24 MG-26 MG TABLET PO SCH ×2 (12:08→21:35)
[2021-02-17] MEDS: CARVEDILOL 3.125 MG TABLET (FP) PO SCH ×2 (12:08→21:35)
[2021-02-17] MEDS: WARFARIN NA 2.5 MG TABLET PO SCH (17:14)
[2021-02-17] MEDS: ATORVASTATIN CA 20 MG TABLET (FP) PO SCH (21:35)
[2021-02-18] MEDS: DOCUSATE SODIUM 100 MG CAPSULE (FP) PO SCH ×3 (06:23→21:56)
[2021-02-18] MEDS: CARVEDILOL 3.125 MG TABLET (FP) PO SCH ×2 (09:27→21:56)
[2021-02-18] MEDS: SACUBITRIL/VALSARTAN 24 MG-26 MG TABLET PO SCH ×2 (09:27→21:56)
[2021-02-18] MEDS: SPIRONOLACTONE 25 MG TABLET PO SCH (09:27)
[2021-02-18] MEDS: FUROSEMIDE 40 MG TABLET (FP) PO SCH (09:27)
[2021-02-18] MEDS: AMIODARONE HCL 200 MG TABLET PO SCH (09:27)
[2021-02-18] MEDS: WARFARIN NA 2.5 MG TABLET PO SCH (18:14)
[2021-02-18] MEDS: ATORVASTATIN CA 20 MG TABLET (FP) PO SCH (21:56)
[2021-02-19 05:54] VITALS: TEMP 97.5
[2021-02-19] MEDS: DOCUSATE SODIUM 100 MG CAPSULE (FP) PO SCH (06:29)
[2021-02-19 10:01] VITALS: BP 94/56; PULSE 72
[2021-02-19] MEDS: SPIRONOLACTONE 25 MG TABLET PO SCH (10:02)
[2021-02-19] MEDS: CARVEDILOL 3.125 MG TABLET (FP) PO SCH (10:03)
[2021-02-19] MEDS: AMIODARONE HCL 200 MG TABLET PO SCH (10:03)
[2021-02-19] MEDS ORDERED: PT OWN MED DRAWER 7, Y5N ONE (10:08)
[2021-02-19] MEDS: SACUBITRIL/VALSARTAN 24 MG-26 MG TABLET PO SCH (10:09)
[2021-02-19] MEDS: FUROSEMIDE 40 MG TABLET (FP) PO SCH (10:09)
[2021-02-19 12:47] LABS: INR 3.44 (0.83-1.09)
== END 2021-02-19 14:43 | disposition home or self-care (01) | DRG 291 ==
LOC: JER 19:19 → JERBED 20:57 → J4W 02-11 23:51
PROVIDERS: ADMIT Internal Medicine; ATTEND Internal Medicine
DX: I13.0 Hypertensive heart and chronic kidney disease with heart failure and stage 1 through stage 4 chronic kidney disease, or unspecified chronic kidney disease (principal); I50.43 Acute on chronic combined systolic (congestive) and diastolic (congestive) heart failure; E87.1 Hypo-osmolality and hyponatremia; I48.20 Chronic atrial fibrillation, unspecified; I24.8 Other forms of acute ischemic heart disease; Z95.0 Presence of cardiac pacemaker; J45.909 Unspecified asthma, uncomplicated; I34.0 Nonrheumatic mitral (valve) insufficiency; N18.9 Chronic kidney disease, unspecified; I42.8 Other cardiomyopathies; Z79.01 Long term (current) use of anticoagulants; Z95.2 Presence of prosthetic heart valve; B02.9 Zoster without complications; I25.10 Atherosclerotic heart disease of native coronary artery without angina pectoris; D64.9 Anemia, unspecified
CPT/HCPCS: 36415; 71045-TC-FY; 80048; 80053; 80162; 82533; 82550; 82553; 83735; 83880; 83930; 83935; 84100; 84300; 84443; 84484; 84550; 85025; 85610; 85730; 93005; 93010; 97116-GP; 97161-GP; 99285-25; C9803; U0003; U0005

== ENCOUNTER 2021-03-28 12:10 | Observation (INO) | payer OTHER ==
[2021-03-28 15:18] LABS: BASO % 0.5 % (0-2.0); EOS % 0.6 % (0-4.5); HEMATOCRIT 34.4 % (35.4-49); HEMOGLOBIN 11.3 GM/dL (11.7-16.9); LYMPH % 26.8 % (8-40); MCH 30.3 pg (25.7-33.7); MEAN CELL VOLUME 91.9 fl (80-96); MONO % 15.8 % (3.8-10.2); NEUT % 56.3 % (42.8-82.8); PLATELET COUNT 212 10^3/uL (134-434); RBC 3.75 M/mm3 (4.00-5.60); RDW 18.3 % (11.9-15.9); WHITE BLOOD COUNT 4.7 K/mm3 (4.0-10.0)
[2021-03-28 15:43] LABS: CALCIUM 8.9 mg/dL (8.5-10.1)
[2021-03-28 15:44] LABS: BLOOD UREA NITROGEN 64.7 mg/dL (7-18)
[2021-03-28 15:47] LABS: CREATININE 1.3 mg/dL (0.55-1.3)
[2021-03-28 15:49] LABS: BILIRUBIN,TOTAL 1.3 mg/dL (0.2-1); TOT PROT 6.9 g/dl (6.4-8.2)
[2021-03-28 16:19] LABS: ALBUMIN 3.2 g/dl (3.4-5.0)
[2021-03-28] MEDS ORDERED: HYDROmorphone HCL CARPU-JECT 2 MG/1 ML DISP.SYRIN IVPUSH ONE (16:24)
[2021-03-28] MEDS ORDERED: CARVEDILOL 3.125 MG TABLET (FP) ONE (21:54)
[2021-03-28] MEDS: CARVEDILOL 3.125 MG TABLET (FP) PO SCH (22:02)
[2021-03-28 22:56] LABS: INR 2.92 (0.83-1.09)
[2021-03-28 22:58] LABS: ACTIVATED PTT 32.2 SECONDS (25.2-36.5)
[2021-03-29 00:53] LABS: INR 2.84 (0.83-1.09)
[2021-03-29] MEDS ORDERED: FUROSEMIDE 40 MG TABLET (FP) ONE (09:25)
[2021-03-29] MEDS ORDERED: FAMOTIDINE 20 MG TABLET ONE (09:26)
[2021-03-29] MEDS ORDERED: CARVEDILOL 3.125 MG TABLET (FP) ONE (09:26)
[2021-03-29] MEDS: FUROSEMIDE 20 MG TABLET (FP) PO SCH (09:41)
[2021-03-29] MEDS: FAMOTIDINE 20 MG TABLET PO SCH (09:41)
[2021-03-29] MEDS: CARVEDILOL 3.125 MG TABLET (FP) PO SCH ×2 (09:41→22:33)
[2021-03-29] MEDS: SACUBITRIL/VALSARTAN 24 MG-26 MG TABLET PO SCH ×2 (11:42→23:15)
[2021-03-29] MEDS ORDERED: WARFARIN NA 1 MG TABLET ONE (17:02)
[2021-03-29] MEDS ORDERED: WARFARIN NA 2 MG TABLET PO SCH (18:00)
[2021-03-29] MEDS ORDERED: FUROSEMIDE 40 MG/4 ML INJECTABLE VIAL IVPUSH ONE (19:02)
[2021-03-29] MEDS ORDERED: FUROSEMIDE 40 MG/4 ML INJECTABLE VIAL ONE (20:10)
[2021-03-30 04:48] VITALS: BMI 29.5
[2021-03-30 07:19] LABS: BASO % 0.6 % (0-2.0); EOS % 0.4 % (0-4.5); HEMATOCRIT 35.4 % (35.4-49); HEMOGLOBIN 11.7 GM/dL (11.7-16.9); LYMPH % 19.8 % (8-40); MCH 30.3 pg (25.7-33.7); MEAN CELL VOLUME 91.7 fl (80-96); MONO % 13.8 % (3.8-10.2); NEUT % 65.4 % (42.8-82.8); PLATELET COUNT 202 10^3/uL (134-434); RBC 3.86 M/mm3 (4.00-5.60); WHITE BLOOD COUNT 5.3 K/mm3 (4.0-10.0)
[2021-03-30 07:25] LABS: INR 3.46 (0.83-1.09); PROTHROMBIN TIME (PATIENT) 40.3 SEC (9.7-13.0)
[2021-03-30 07:47] LABS: ALBUMIN 3.2 g/dl (3.4-5.0); BLOOD UREA NITROGEN 52.6 mg/dL (7-18); CALCIUM 9.3 mg/dL (8.5-10.1)
[2021-03-30 07:50] LABS: CREATININE 1.3 mg/dL (0.55-1.3)
[2021-03-30 07:52] LABS: BILIRUBIN,TOTAL 1.3 mg/dL (0.2-1)
[2021-03-30 07:53] LABS: TOT PROT 6.9 g/dl (6.4-8.2)
[2021-03-30] MEDS: FAMOTIDINE 20 MG TABLET PO SCH (09:17)
[2021-03-30] MEDS: CARVEDILOL 3.125 MG TABLET (FP) PO SCH ×2 (09:17→22:49)
[2021-03-30] MEDS: FUROSEMIDE 20 MG TABLET (FP) PO SCH (09:17)
[2021-03-30] MEDS: SACUBITRIL/VALSARTAN 24 MG-26 MG TABLET PO SCH ×2 (09:18→22:49)
[2021-03-30] MEDS ORDERED: FUROSEMIDE 40 MG/4 ML INJECTABLE VIAL IVPUSH ONE (11:00)
[2021-03-30 21:47] LABS: INR 3.08 (0.83-1.09); PROTHROMBIN TIME (PATIENT) 35.8 SEC (9.7-13.0)
[2021-03-31] MEDS: CARVEDILOL 3.125 MG TABLET (FP) PO SCH ×2 (09:20→21:43)
[2021-03-31] MEDS: SACUBITRIL/VALSARTAN 24 MG-26 MG TABLET PO SCH ×2 (09:21→22:43)
[2021-03-31] MEDS: FAMOTIDINE 20 MG TABLET PO SCH (09:21)
[2021-03-31] MEDS: FUROSEMIDE 20 MG TABLET (FP) PO SCH (09:21)
[2021-03-31] MEDS: FUROSEMIDE 40 MG/4 ML INJECTABLE VIAL IVPUSH SCH (16:12)
[2021-03-31] MEDS ORDERED: WARFARIN NA 2 MG TABLET PO SCH (18:00)
[2021-04-01] MEDS: SACUBITRIL/VALSARTAN 24 MG-26 MG TABLET PO SCH (09:37)
[2021-04-01] MEDS: CARVEDILOL 3.125 MG TABLET (FP) PO SCH (09:37)
[2021-04-01] MEDS: FAMOTIDINE 20 MG TABLET PO SCH (09:37)
[2021-04-01] MEDS: FUROSEMIDE 40 MG/4 ML INJECTABLE VIAL IVPUSH SCH (13:06)
[2021-04-01 14:25] VITALS: BP 107/61; PULSE 81; TEMP 98.3
== END 2021-04-01 15:55 | disposition home health service (06) ==
LOC: JER 12:10 → INTOOBSV 16:31 → JERBED 16:31 → OBSVTOIN 16:31 → UNDOADMOB 16:31 → JERBED 03-29 10:52 → J4W 03-30 02:56
PROVIDERS: ADMIT Internal Medicine; ATTEND Internal Medicine
PROC: 3E033GC Introduction of Other Therapeutic Substance into Peripheral Vein, Percutaneous Approach (ICD-10-PCS; principal; 2021-03-29)
DX: I50.42 Chronic combined systolic (congestive) and diastolic (congestive) heart failure (principal); I25.10 Atherosclerotic heart disease of native coronary artery without angina pectoris; R79.89 Other specified abnormal findings of blood chemistry; R41.82 Altered mental status, unspecified; E78.5 Hyperlipidemia, unspecified; I48.19 Other persistent atrial fibrillation; J44.9 Chronic obstructive pulmonary disease, unspecified; B02.9 Zoster without complications; R53.83 Other fatigue; R60.0 Localized edema; I34.0 Nonrheumatic mitral (valve) insufficiency; I27.20 Pulmonary hypertension, unspecified; I42.9 Cardiomyopathy, unspecified; I24.8 Other forms of acute ischemic heart disease; I13.0 Hypertensive heart and chronic kidney disease with heart failure and stage 1 through stage 4 chronic kidney disease, or unspecified chronic kidney disease
CPT/HCPCS: 36415; 70450-TC; 71045-TC-FY; 80053; 84484; 85025; 85610; 85730; 93005; 93010; 96374; 96375; 97116-GP; 97162-GP; 99285-25; C9803; G0378; U0003; U0005

== ENCOUNTER 2021-04-20 18:47 | Inpatient (IN) | payer OTHER ==
[~2021-04-20 18:47] MED LIST: SODIUM ZIRCONIUM CYCLOSILICATE (LOKELMA) 5 GM PACKET PO ONE
[2021-04-20] MEDS ORDERED: FUROSEMIDE 40 MG/4 ML INJECTABLE VIAL IVPUSH ONE (19:41)
[2021-04-20] MEDS ORDERED: FUROSEMIDE 40 MG/4 ML INJECTABLE VIAL ONE (19:50)
[2021-04-20] MEDS ORDERED: ERYTHROMYCIN 0.5% OPHTHALMIC OINTMENT 3.5 GM TUBE OD ONE (20:15)
[2021-04-20] MEDS ORDERED: ERYTHROMYCIN 0.5% OPHTHALMIC OINTMENT 3.5 GM TUBE ONE (20:22)
[2021-04-20 21:07] LABS: BASO % 0.2 % (0-2.0); EOS % 0.1 % (0-4.5); HEMATOCRIT 33.3 % (35.4-49); HEMOGLOBIN 10.9 GM/dL (11.7-16.9); LYMPH % 5.7 % (8-40); MCH 29.2 pg (25.7-33.7); MCHC 32.8 g/dl (32.0-35.9); MEAN CELL VOLUME 88.9 fl (80-96); MEAN PLT VOLUME 10.7 fl (7.5-11.1); MONO % 6.9 % (3.8-10.2); NEUT % 87.1 % (42.8-82.8); PLATELET COUNT 132 10^3/uL (134-434); RBC 3.75 M/mm3 (4.00-5.60); RDW 18.4 % (11.9-15.9); WHITE BLOOD COUNT 9.8 K/mm3 (4.0-10.0)
[2021-04-20] MEDS: ALBUTEROL SO4 2.5/IPRATROPIUM 0.5 INH SOL 3 ML VIAL.NEB. NEB SCH ×2 (21:11→21:12)
[2021-04-20 21:26] LABS: CHLORIDE 84 mmol/L (98-107); SODIUM 121 mmol/L (136-145)
[2021-04-20 21:28] LABS: ALBUMIN 3.2 g/dl (3.4-5.0); BLOOD UREA NITROGEN 94.4 mg/dL (7-18); CO2 27 mmol/L (21-32); GLUCOSE,RANDOM 86 mg/dL (74-106)
[2021-04-20 21:31] LABS: CREATININE 2.9 mg/dL (0.55-1.3); SGOT/AST 29 U/L (15-37)
[2021-04-20 21:32] LABS: PHOSPHOROUS 6.4 mg/dL (2.5-4.9); SGPT/ALT 31 U/L (13-61)
[2021-04-20 21:33] LABS: BILIRUBIN,TOTAL 1.2 mg/dL (0.2-1); TOT PROT 6.5 g/dl (6.4-8.2)
[2021-04-20 21:34] LABS: ALK PHOS 170 U/L (45-117)
[2021-04-20 21:38] LABS: ANION GAP 10 MMOL/L (8-16)
[2021-04-20] MEDS ORDERED: INSULIN REGULAR HUMAN 100 UNITS/ML *VIAL IVPUSH ONE (21:40)
[2021-04-20] MEDS ORDERED: ASPIRIN 81 MG CHEWABLE TABLETS PO ONE (21:46)
[2021-04-20] MEDS ORDERED: CALCIUM GLUCONATE 10% - 1,000 MG/10 ML VIAL IVPUSH ONE (21:52)
[2021-04-20] MEDS ORDERED: DEXTROSE 50%-WATER - 25 GM/50 ML VIAL IVPUSH ONE (21:55)
[2021-04-20 21:58] LABS: VENOUS BASE EXCESS -2.1 mmol/L (-2-2); VENOUS O2 SATURATION 49.8 % (70-80); VENOUS PCO2 66.3 mmHg (38-52); VENOUS PH 7.224 (7.310-7.410)
[2021-04-20 22:15] LABS: N-TERMINAL BNP 11625.6 pg/ml (5-450)
[2021-04-20] MEDS ORDERED: ASPIRIN 81 MG CHEWABLE TABLETS ONE (22:17)
[2021-04-20] MEDS ORDERED: CALCIUM GLUCONATE 10% - 1,000 MG/10 ML VIAL ONE (22:17)
[2021-04-20] MEDS ORDERED: DEXTROSE 50%-WATER 25 GM/50 ML DISP.SYRIN ONE (22:17)
[2021-04-20] MEDS ORDERED: SODIUM ZIRCONIUM CYCLOSILICATE (LOKELMA) 5 GM PACKET ONE (22:29)
[2021-04-20] MEDS ORDERED: SACUBITRIL/VALSARTAN 24 MG-26 MG TABLET PO SCH (23:30)
[2021-04-21] MEDS ORDERED: SODIUM CHLORIDE 500 ML IV STA (01:41)
[2021-04-21] MEDS ORDERED: NOREPINEPHRINE BITARTRATE 16,000 MCG in SODIUM CHLORIDE 484 ML IV SCH (02:00)
[2021-04-21 02:34] LABS: HEMATOCRIT 30.3 % (35.4-49); HEMOGLOBIN 9.9 GM/dL (11.7-16.9); MCH 29.1 pg (25.7-33.7); MCHC 32.8 g/dl (32.0-35.9); MEAN CELL VOLUME 88.8 fl (80-96); MEAN PLT VOLUME 10.7 fl (7.5-11.1); PLATELET COUNT 117 10^3/uL (134-434); RBC 3.41 M/mm3 (4.00-5.60); RDW 18.5 % (11.9-15.9); WHITE BLOOD COUNT 9.8 K/mm3 (4.0-10.0)
[2021-04-21 02:39] LABS: CALCIUM 8.8 mg/dL (8.5-10.1)
[2021-04-21 02:40] LABS: BLOOD UREA NITROGEN 92.5 mg/dL (7-18); CO2 28 mmol/L (21-32)
[2021-04-21 02:49] LABS: ANION GAP 8 MMOL/L (8-16); CHLORIDE 87 mmol/L (98-107); GLUCOSE,RANDOM 31 mg/dL (74-106); SODIUM 123 mmol/L (136-145)
[2021-04-21] MEDS ORDERED: SACUBITRIL/VALSARTAN 24 MG-26 MG TABLET PO SCH ×2 (02:55→10:00)
[2021-04-21] MEDS ORDERED: DEXTROSE 50%-WATER 25 GM/50 ML DISP.SYRIN ONE (02:57)
[2021-04-21] MEDS ORDERED: LORazepam 2 MG/ML SDV VIAL IVPUSH ONE (02:59)
[2021-04-21] MEDS ORDERED: DEXTROSE 50%-WATER 25 GM/50 ML DISP.SYRIN IVPUSH ONE (03:00)
[2021-04-21] MEDS ORDERED: DEXTROSE 50%-WATER - 25 GM/50 ML VIAL IVPUSH ONE (03:00)
[2021-04-21] MEDS: NOREPINEPHRINE BITARTRATE 16,000 MCG in SODIUM CHLORIDE 484 ML IV SCH (03:03)
[2021-04-21] MEDS ORDERED: LORazepam 2 MG/ML SDV VIAL IVPUSH PRN (03:08)
[2021-04-21 03:11] LABS: PROTHROMBIN TIME (PATIENT) 136.7 SEC (9.7-13.0)
[2021-04-21 03:12] LABS: INR 11.6 (0.83-1.09)
[2021-04-21] MEDS ORDERED: PHYTONADIONE 10 MG/1 ML AMP IVPB ONE (04:02)
[2021-04-21] MEDS ORDERED: EPINEPHrine 1:1,000 1,000 MCG in DEXTROSE 5%-WATER - 249 ML IVPB SCH (05:00)
[2021-04-21] MEDS ORDERED: EPINEPHrine 1:1,000 4,000 MCG in DEXTROSE 5%-WATER - 996 ML IV SCH (05:30)
[2021-04-21] MEDS ORDERED: EPINEPHrine 1:1,000 4,000 MCG in DEXTROSE 5%-WATER - 996 ML IVPB SCH (06:00)
[2021-04-21] MEDS ORDERED: RAPID SEQUENCE INTUBATION KIT NR ONE (06:26)
[2021-04-21 07:00] LABS: HEMOGLOBIN 10.8 GM/dL (11.7-16.9); MCH 29.2 pg (25.7-33.7); MCHC 32.6 g/dl (32.0-35.9); MEAN CELL VOLUME 89.7 fl (80-96); MEAN PLT VOLUME 11.1 fl (7.5-11.1); PLATELET COUNT 131 10^3/uL (134-434); RBC 3.68 M/mm3 (4.00-5.60); RDW 18.1 % (11.9-15.9); WHITE BLOOD COUNT 9.8 K/mm3 (4.0-10.0)
[2021-04-21] MEDS ORDERED: FENTANYL IVPB 500 MCG/100 ML BAG IVPB SCH (07:00)
[2021-04-21 07:23] LABS: BLOOD UREA NITROGEN 94.8 mg/dL (7-18)
[2021-04-21 07:24] LABS: CALCIUM 8.6 mg/dL (8.5-10.1)
[2021-04-21 07:25] LABS: ALBUMIN 2.9 g/dl (3.4-5.0); MAGNESIUM 2.7 mg/dL (1.8-2.4)
[2021-04-21] MEDS ORDERED: FUROSEMIDE 40 MG/4 ML INJECTABLE VIAL IVPUSH ONE (07:26)
[2021-04-21] MEDS ORDERED: SODIUM ZIRCONIUM CYCLOSILICATE (LOKELMA) 5 GM PACKET NGT ONE (07:27)
[2021-04-21 07:29] LABS: BILIRUBIN,TOTAL 1.2 mg/dL (0.2-1); TOT PROT 6.1 g/dl (6.4-8.2)
[2021-04-21 08:12] LABS: PROTHROMBIN TIME (PATIENT) 149.4 SEC (9.7-13.0)
[2021-04-21 08:14] LABS: INR 12.6 (0.83-1.09)
[2021-04-21] MEDS ORDERED: SODIUM ZIRCONIUM CYCLOSILICATE (LOKELMA) 5 GM PACKET PO ONE (10:00)
[2021-04-21] MEDS ORDERED: FUROSEMIDE 40 MG/4 ML INJECTABLE VIAL IVPUSH SCH ×3 (10:00→15:00)
[2021-04-21] MEDS ORDERED: CARVEDILOL 3.125 MG TABLET (FP) PO SCH ×2 (10:00)
[2021-04-21 10:36] LABS: ARTERIAL BLD GAS O2 SATURATION 97.4 % (95-98); ARTERIAL BLOOD GAS BASE EXCESS -5.1 mmol/L (-2-2); ARTERIAL BLOOD GAS pH 7.254 (7.350-7.450)
[2021-04-21 10:40] LABS: ALLENS TEST POSITIVE
[2021-04-21 10:43] LABS: PT'S TEMP 91.7; VENT MODE A/C; VENT RATE 16
[2021-04-21] MEDS ORDERED: PROPOFOL 200 MG/20 ML VIAL IVPUSH ONE (11:07)
[2021-04-21] MEDS: MIDAZOLAM IN 0.9 % SOD.CHLORID 100 MG/100 ML PLAST..BAG IVPB SCH (11:15)
[2021-04-21] MEDS ORDERED: PROPOFOL 1,000,000 MCG/100 ML VIAL ONE ×2 (12:05→19:48)
[2021-04-21 13:52] LABS: INR 3.55 (0.83-1.09); PROTHROMBIN TIME (PATIENT) 41.4 SEC (9.7-13.0)
[2021-04-21 13:55] LABS: ACTIVATED PTT 40.4 SECONDS (25.2-36.5)
[2021-04-21] MEDS ORDERED: VASOPRESSIN 20 UNITS/ML VIAL IV ONE (14:30)
[2021-04-21] MEDS ORDERED: VASOPRESSIN 40 UNITS/100 ML BAG IV SCH ×2 (14:30→17:45)
[2021-04-21] MEDS ORDERED: PHENYLEPHRINE HCL 10 MG/1 ML SINGLE DOSE VIAL ONE (14:42)
[2021-04-21] MEDS: PHENYLEPHRINE NS PREMIX 50,000 MCG/500 ML BAG CVP SCH ×2 (15:00→21:30)
[2021-04-21] MEDS: MUPIROCIN 2% TOPICAL OINTMENT FOR DECOLONIZATION NS SCH ×2 (15:12→20:15)
[2021-04-21] MEDS: PANTOPRAZOLE SODIUM 40 MG VIAL IVPUSH SCH (16:01)
[2021-04-21] MEDS ORDERED: SODIUM BICARBONATE 8.4% 50 MEQ/50 ML DISP.SYRIN IVPUSH ONE (16:42)
[2021-04-21 17:03] LABS: EPI CELLS 15 /uL (0-25.1); HYALINE CASTS 8 /uL (0-3.1); URINE APPEARANCE CLOUDY; URINE BACTERIA 486 /uL (0-1359); URINE BILIRUBIN NEGATIVE (NEGATIVE); URINE COLOR YELLOW; URINE GLUCOSE (UA) NEGATIVE (NEGATIVE); URINE KETONE NEGATIVE (NEGATIVE); URINE LEUK ESTERASE 3+ (NEGATIVE); URINE NITRITE NEGATIVE (NEGATIVE); URINE PROTEIN NEGATIVE (NEGATIVE); URINE UROBILINOGEN 0.2 mg/dL (0.2-1.0); URINE WBC 817 /uL (0-25.8)
[2021-04-21] MEDS ORDERED: CEFTRIAXONE 1 GM in DEXTROSE 5%-WATER - 50 ML IVPB ONE (17:40)
[2021-04-21] MEDS ORDERED: WARFARIN NA 2 MG TABLET PO SCH ×2 (18:00)
[2021-04-21] MEDS ORDERED: cefTRIAXone SODIUM 1 GM VIAL ONE (18:01)
[2021-04-21] MEDS ORDERED: DEXTROSE 5%-WATER - 50 ML IVPB ONE (18:01)
[2021-04-21] MEDS: VASOPRESSIN 40 UNITS/100 ML BAG IV SCH (19:00)
[2021-04-21 21:29] LABS: URINE RBC 721 /uL (0-23.9)
[2021-04-21 22:25] LABS: LACTIC ACID 2.2 mmol/L (0.4-2.0)
[2021-04-21] MEDS: CHLORHEXIDINE GLUCONATE 4% CLEANSER FOR DECOLONIZATION TP SCH (22:30)
[2021-04-21 22:37] LABS: HEMATOCRIT 36.8 % (35.4-49); HEMOGLOBIN 12.1 GM/dL (11.7-16.9); MCH 29.1 pg (25.7-33.7); MCHC 32.8 g/dl (32.0-35.9); MEAN CELL VOLUME 88.7 fl (80-96); MEAN PLT VOLUME 10.9 fl (7.5-11.1); PLATELET COUNT 140 10^3/uL (134-434); RBC 4.15 M/mm3 (4.00-5.60); RDW 18.7 % (11.9-15.9); WHITE BLOOD COUNT 13.5 K/mm3 (4.0-10.0)
[2021-04-21 22:44] LABS: INR 2.36 (0.83-1.09); PROTHROMBIN TIME (PATIENT) 27.4 SEC (9.7-13.0)
[2021-04-21 22:45] LABS: CALCIUM 8.3 mg/dL (8.5-10.1)
[2021-04-21 22:46] LABS: BLOOD UREA NITROGEN 87.4 mg/dL (7-18); MAGNESIUM 2.4 mg/dL (1.8-2.4)
[2021-04-21 22:47] LABS: ACTIVATED PTT 35.2 SECONDS (25.2-36.5)
[2021-04-21 22:49] LABS: CREATININE 2.8 mg/dL (0.55-1.3); PHOSPHOROUS 5.4 mg/dL (2.5-4.9)
[2021-04-22] MEDS: FENTANYL NS IVPB 500 MCG/100 ML BAG IVPB SCH ×2 (00:15→03:21)
[2021-04-22] MEDS: NOREPINEPHRINE BITARTRATE 16,000 MCG in SODIUM CHLORIDE 484 ML IV SCH ×2 (01:14→03:26)
[2021-04-22] MEDS: NYSTATIN 100,000 UNIT/GM TOPICAL CREAM 15 GM TUBE TP SCH ×3 (03:21→21:37)
[2021-04-22] MEDS: PHENYLEPHRINE NS PREMIX 50,000 MCG/500 ML BAG CVP SCH ×2 (03:21)
[2021-04-22] MEDS: VASOPRESSIN 40 UNITS/100 ML BAG IV SCH ×3 (03:22→21:33)
[2021-04-22] MEDS: DEXMEDETOMIDINE IN 0.9 % NACL 400 MCG/100 ML VIAL IVPB SCH ×3 (04:45→23:45)
[2021-04-22 06:29] LABS: ARTERIAL BLD GAS O2 SATURATION 93.7 % (95-98); ARTERIAL BLOOD GAS BASE EXCESS -3.7 mmol/L (-2-2); ARTERIAL BLOOD GAS pH 7.343 (7.350-7.450)
[2021-04-22 06:33] LABS: VENT MODE A/C; VENT RATE 16
[2021-04-22 07:17] LABS: HEMATOCRIT 35.2 % (35.4-49); HEMOGLOBIN 11.2 GM/dL (11.7-16.9); LYMPH % 3.9 % (8-40); MCH 28.5 pg (25.7-33.7); MEAN CELL VOLUME 89.1 fl (80-96); MEAN PLT VOLUME 11.2 fl (7.5-11.1); MONO % 7.4 % (3.8-10.2); NEUT % 88.7 % (42.8-82.8); PLATELET COUNT 140 10^3/uL (134-434); RBC 3.95 M/mm3 (4.00-5.60); RDW 18.4 % (11.9-15.9); WHITE BLOOD COUNT 13.7 K/mm3 (4.0-10.0)
[2021-04-22 07:39] LABS: CALCIUM 8.4 mg/dL (8.5-10.1)
[2021-04-22 07:40] LABS: ALBUMIN 2.6 g/dl (3.4-5.0); BLOOD UREA NITROGEN 74.5 mg/dL (7-18); MAGNESIUM 2.3 mg/dL (1.8-2.4)
[2021-04-22 07:42] LABS: INR 2.1 (0.83-1.09); PROTHROMBIN TIME (PATIENT) 24.3 SEC (9.7-13.0)
[2021-04-22 07:43] LABS: CREATININE 2.2 mg/dL (0.55-1.3); PHOSPHOROUS 5.4 mg/dL (2.5-4.9)
[2021-04-22 07:44] LABS: BILIRUBIN,TOTAL 1.7 mg/dL (0.2-1); TOT PROT 5.9 g/dl (6.4-8.2)
[2021-04-22] MEDS ORDERED: SODIUM CHLORIDE IV SCH (08:00)
[2021-04-22] MEDS ORDERED: PHENYLEPHRINE HCL IV SCH (08:00)
[2021-04-22] MEDS: SODIUM CHLORIDE IV SCH (08:46)
[2021-04-22] MEDS: PHENYLEPHRINE HCL IV SCH (08:46)
[2021-04-22] MEDS: MUPIROCIN 2% TOPICAL OINTMENT FOR DECOLONIZATION NS SCH ×2 (09:30→21:37)
[2021-04-22] MEDS ORDERED: FUROSEMIDE 40 MG/4 ML INJECTABLE VIAL IVPUSH ONE ×2 (10:56→16:47)
[2021-04-22] MEDS: PANTOPRAZOLE SODIUM 40 MG VIAL IVPUSH SCH (13:19)
[2021-04-22 15:26] LABS: BLOOD UREA NITROGEN 68.2 mg/dL (7-18); CALCIUM 7.9 mg/dL (8.5-10.1)
[2021-04-22] MEDS: MIDAZOLAM IN 0.9 % SOD.CHLORID 100 MG/100 ML PLAST..BAG IVPB SCH ×2 (20:27)
[2021-04-22] MEDS: CHLORHEXIDINE GLUCONATE 4% CLEANSER FOR DECOLONIZATION TP SCH (21:37)
[2021-04-22] MEDS: ARTIFICIAL TEARS (POLYVINYL ALCOHOL) OPTH DROPS OU PRN (21:59)
[2021-04-23] MEDS: FENTANYL NS IVPB 500 MCG/100 ML BAG IVPB SCH ×3 (03:43→22:03)
[2021-04-23] MEDS: DEXMEDETOMIDINE IN 0.9 % NACL 400 MCG/100 ML VIAL IVPB SCH ×3 (03:44→23:45)
[2021-04-23 06:36] LABS: ARTERIAL BLD GAS O2 SATURATION 95.9 % (95-98); ARTERIAL BLOOD GAS BASE EXCESS 1.3 mmol/L (-2-2); ARTERIAL BLOOD GAS pH 7.372 (7.350-7.450)
[2021-04-23 06:38] LABS: VENT MODE A/C; VENT RATE 16
[2021-04-23 07:19] LABS: INR 1.99 (0.83-1.09)
[2021-04-23 07:21] LABS: HEMATOCRIT 34.5 % (35.4-49); HEMOGLOBIN 11.1 GM/dL (11.7-16.9); MCH 29.1 pg (25.7-33.7); MCHC 32.3 g/dl (32.0-35.9); MEAN CELL VOLUME 90.1 fl (80-96); MEAN PLT VOLUME 10.8 fl (7.5-11.1); PLATELET COUNT 131 10^3/uL (134-434); RBC 3.83 M/mm3 (4.00-5.60); RDW 18.5 % (11.9-15.9); WHITE BLOOD COUNT 9.6 K/mm3 (4.0-10.0)
[2021-04-23 07:38] LABS: CHLORIDE 94 mmol/L (98-107); SODIUM 134 mmol/L (136-145)
[2021-04-23 07:39] LABS: ANION GAP 9 MMOL/L (8-16); CO2 31 mmol/L (21-32)
[2021-04-23 07:40] LABS: CALCIUM 7.8 mg/dL (8.5-10.1); MAGNESIUM 1.9 mg/dL (1.8-2.4)
[2021-04-23 07:42] LABS: ALBUMIN 2.3 g/dl (3.4-5.0); BLOOD UREA NITROGEN 56.7 mg/dL (7-18); GLUCOSE,RANDOM 113 mg/dL (74-106)
[2021-04-23 07:43] LABS: BILIRUBIN,DIRECT 1.4 mg/dL (0.0-0.2); CREATININE 1.6 mg/dL (0.55-1.3); SGOT/AST 50 U/L (15-37); SGPT/ALT 47 U/L (13-61)
[2021-04-23 07:45] LABS: PHOSPHOROUS 3.7 mg/dL (2.5-4.9); TOT PROT 5.6 g/dl (6.4-8.2)
[2021-04-23 07:47] LABS: BILIRUBIN,TOTAL 1.9 mg/dL (0.2-1)
[2021-04-23 07:48] LABS: ALK PHOS 140 U/L (45-117)
[2021-04-23] MEDS: NOREPINEPHRINE BITARTRATE 16,000 MCG in SODIUM CHLORIDE 484 ML IV SCH (08:50)
[2021-04-23] MEDS: VASOPRESSIN 40 UNITS in SODIUM CHLORIDE 40 UNITS/100 ML INFUS.BAG IVPB SCH ×2 (08:50→19:40)
[2021-04-23] MEDS ORDERED: VASOPRESSIN 40 UNITS/100 ML BAG IV SCH (08:53)
[2021-04-23] MEDS ORDERED: FUROSEMIDE 40 MG/4 ML INJECTABLE VIAL IVPUSH ONE ×2 (08:53→09:04)
[2021-04-23] MEDS ORDERED: POTASSIUM CHLORIDE ORAL LIQUID 20 MEQ/15 ML PO ONE (09:03)
[2021-04-23] MEDS: PANTOPRAZOLE SODIUM 40 MG VIAL IVPUSH SCH (09:22)
[2021-04-23] MEDS: NYSTATIN 100,000 UNIT/GM TOPICAL CREAM 15 GM TUBE TP SCH ×2 (09:23→22:03)
[2021-04-23] MEDS: ARTIFICIAL TEARS (POLYVINYL ALCOHOL) OPTH DROPS OU PRN (09:29)
[2021-04-23] MEDS: MUPIROCIN 2% TOPICAL OINTMENT FOR DECOLONIZATION NS SCH ×2 (11:08→22:03)
[2021-04-23] MEDS: FUROSEMIDE 40 MG/4 ML INJECTABLE VIAL IVPUSH SCH (15:13)
[2021-04-23 16:43] LABS: BLOOD UREA NITROGEN 49.7 mg/dL (7-18)
[2021-04-23 16:46] LABS: CREATININE 1.4 mg/dL (0.55-1.3)
[2021-04-23] MEDS ORDERED: MIDAZOLAM IN 0.9 % SOD.CHLORID 1 MG/1 ML PLAST..BAG ONE (20:19)
[2021-04-23] MEDS: MIDAZOLAM IN 0.9 % SOD.CHLORID 100 MG/100 ML PLAST..BAG IVPB SCH (20:34)
[2021-04-23] MEDS: PHENYLEPHRINE HCL IV SCH (20:34)
[2021-04-23] MEDS: SODIUM CHLORIDE IV SCH (20:34)
[2021-04-23] MEDS: CHLORHEXIDINE GLUCONATE 4% CLEANSER FOR DECOLONIZATION TP SCH (22:03)
[2021-04-24] MEDS: FENTANYL NS IVPB 500 MCG/100 ML BAG IVPB SCH ×3 (00:38→16:30)
[2021-04-24] MEDS: VASOPRESSIN 40 UNITS in SODIUM CHLORIDE 40 UNITS/100 ML INFUS.BAG IVPB SCH ×2 (01:11→21:32)
[2021-04-24] MEDS: NOREPINEPHRINE BITARTRATE 16,000 MCG in SODIUM CHLORIDE 484 ML IV SCH (03:18)
[2021-04-24] MEDS: FUROSEMIDE 40 MG/4 ML INJECTABLE VIAL IVPUSH SCH ×2 (05:33→13:11)
[2021-04-24] MEDS ORDERED: HEPARIN NA (PORCINE) 5,000 UNITS/ML 1ML VIAL IVPUSH PRN ×2 (06:27)
[2021-04-24 06:45] LABS: ARTERIAL BLD GAS O2 SATURATION 96.8 % (95-98); ARTERIAL BLOOD GAS BASE EXCESS -1.8 mmol/L (-2-2); ARTERIAL BLOOD GAS PO2 93.2 mmHg (80-100); ARTERIAL BLOOD GAS pH 7.356 (7.350-7.450)
[2021-04-24 06:59] LABS: VENT MODE A/C; VENT RATE 16
[2021-04-24 07:35] LABS: HEMATOCRIT 35.1 % (35.4-49); HEMOGLOBIN 11.3 GM/dL (11.7-16.9); MCH 28.7 pg (25.7-33.7); MCHC 32.1 g/dl (32.0-35.9); MEAN CELL VOLUME 89.5 fl (80-96); MEAN PLT VOLUME 10.8 fl (7.5-11.1); PLATELET COUNT 138 10^3/uL (134-434); RBC 3.92 M/mm3 (4.00-5.60); RDW 18.8 % (11.9-15.9)
[2021-04-24] MEDS ORDERED: HEPARIN - 25,000 UNIT in SODIUM CHLORIDE 495 ML IV SCH (07:45)
[2021-04-24 07:49] LABS: INR 2.17 (0.83-1.09); PROTHROMBIN TIME (PATIENT) 25.1 SEC (9.7-13.0)
[2021-04-24 08:00] LABS: CHLORIDE 100 mmol/L (98-107); SODIUM 139 mmol/L (136-145)
[2021-04-24 08:02] LABS: ALBUMIN 2.1 g/dl (3.4-5.0); ANION GAP 6 MMOL/L (8-16); CALCIUM 8.2 mg/dL (8.5-10.1); CO2 33 mmol/L (21-32); GLUCOSE,RANDOM 111 mg/dL (74-106); MAGNESIUM 1.9 mg/dL (1.8-2.4)
[2021-04-24 08:04] LABS: BLOOD UREA NITROGEN 40.3 mg/dL (7-18)
[2021-04-24 08:05] LABS: PHOSPHOROUS 2.8 mg/dL (2.5-4.9); SGOT/AST 59 U/L (15-37); SGPT/ALT 51 U/L (13-61)
[2021-04-24 08:06] LABS: BILIRUBIN,TOTAL 2.3 mg/dL (0.2-1); CREATININE 1.2 mg/dL (0.55-1.3)
[2021-04-24 08:07] LABS: TOT PROT 5.5 g/dl (6.4-8.2)
[2021-04-24 08:09] LABS: ALK PHOS 136 U/L (45-117)
[2021-04-24] MEDS: DEXMEDETOMIDINE IN 0.9 % NACL 400 MCG/100 ML VIAL IVPB SCH ×2 (09:57→21:35)
[2021-04-24] MEDS: PANTOPRAZOLE SODIUM 40 MG VIAL IVPUSH SCH (09:59)
[2021-04-24] MEDS: MUPIROCIN 2% TOPICAL OINTMENT FOR DECOLONIZATION NS SCH ×2 (10:00→21:33)
[2021-04-24] MEDS: NYSTATIN 100,000 UNIT/GM TOPICAL CREAM 15 GM TUBE TP SCH ×2 (10:07→21:34)
[2021-04-24] MEDS: PHENYLEPHRINE NS PREMIX 50,000 MCG/500 ML BAG CVP SCH (15:45)
[2021-04-24] MEDS ORDERED: cefTRIAXone SODIUM 1 GM VIAL ONE (16:23)
[2021-04-24] MEDS ORDERED: DEXTROSE 5%-WATER - 50 ML IVPB ONE (16:23)
[2021-04-24] MEDS: CEFTRIAXONE 1 GM in DEXTROSE 5%-WATER - 50 ML IVPB SCH (16:30)
[2021-04-24] MEDS: CHLORHEXIDINE GLUCONATE 4% CLEANSER FOR DECOLONIZATION TP SCH (21:33)
[2021-04-25] MEDS: FENTANYL NS IVPB 500 MCG/100 ML BAG IVPB SCH ×2 (02:00→12:01)
[2021-04-25] MEDS: DEXMEDETOMIDINE IN 0.9 % NACL 400 MCG/100 ML VIAL IVPB SCH ×2 (05:25)
[2021-04-25] MEDS: FUROSEMIDE 40 MG/4 ML INJECTABLE VIAL IVPUSH SCH ×2 (05:25→13:16)
[2021-04-25] MEDS: VASOPRESSIN 40 UNITS in SODIUM CHLORIDE 40 UNITS/100 ML INFUS.BAG IVPB SCH ×2 (05:26→16:08)
[2021-04-25] MEDS: NOREPINEPHRINE BITARTRATE 16,000 MCG in SODIUM CHLORIDE 484 ML IV SCH ×2 (06:38→09:05)
[2021-04-25 08:10] LABS: ALBUMIN 2.1 g/dl (3.4-5.0); BLOOD UREA NITROGEN 49.3 mg/dL (7-18); CALCIUM 7.7 mg/dL (8.5-10.1)
[2021-04-25 08:14] LABS: CREATININE 1.4 mg/dL (0.55-1.3)
[2021-04-25 08:16] LABS: BILIRUBIN,TOTAL 2.6 mg/dL (0.2-1); TOT PROT 5.5 g/dl (6.4-8.2)
[2021-04-25] MEDS ORDERED: cefTRIAXone SODIUM 1 GM VIAL ONE (08:30)
[2021-04-25] MEDS ORDERED: DEXTROSE 5%-WATER - 50 ML IVPB ONE (08:31)
[2021-04-25] MEDS: CEFTRIAXONE 1 GM in DEXTROSE 5%-WATER - 50 ML IVPB SCH (09:06)
[2021-04-25] MEDS: PANTOPRAZOLE SODIUM 40 MG VIAL IVPUSH SCH (09:06)
[2021-04-25] MEDS: MUPIROCIN 2% TOPICAL OINTMENT FOR DECOLONIZATION NS SCH ×2 (09:09→22:10)
[2021-04-25] MEDS: PHENYLEPHRINE NS PREMIX 50,000 MCG/500 ML BAG CVP SCH ×2 (11:39→17:16)
[2021-04-25] MEDS: NYSTATIN 100,000 UNIT/GM TOPICAL CREAM 15 GM TUBE TP SCH (11:42)
[2021-04-25] MEDS: CHLORHEXIDINE GLUCONATE 4% CLEANSER FOR DECOLONIZATION TP SCH (22:10)
[2021-04-26] MEDS: FUROSEMIDE 40 MG/4 ML INJECTABLE VIAL IVPUSH SCH ×2 (05:49→14:48)
[2021-04-26 07:24] LABS: HEMATOCRIT 34.8 % (35.4-49); HEMOGLOBIN 10.9 GM/dL (11.7-16.9); MCH 28.5 pg (25.7-33.7); MCHC 31.5 g/dl (32.0-35.9); MEAN CELL VOLUME 90.6 fl (80-96); MEAN PLT VOLUME 9.9 fl (7.5-11.1); PLATELET COUNT 113 10^3/uL (134-434); RBC 3.84 M/mm3 (4.00-5.60); RDW 19.8 % (11.9-15.9)
[2021-04-26 07:34] LABS: INR 2.65 (0.83-1.09); PROTHROMBIN TIME (PATIENT) 30.8 SEC (9.7-13.0)
[2021-04-26 07:36] LABS: ACTIVATED PTT 31.2 SECONDS (25.2-36.5)
[2021-04-26 07:56] LABS: CALCIUM 7.9 mg/dL (8.5-10.1)
[2021-04-26 07:57] LABS: ALBUMIN 1.9 g/dl (3.4-5.0); BLOOD UREA NITROGEN 52.1 mg/dL (7-18); MAGNESIUM 1.9 mg/dL (1.8-2.4)
[2021-04-26 08:00] LABS: CREATININE 1.4 mg/dL (0.55-1.3); PHOSPHOROUS 2.8 mg/dL (2.5-4.9)
[2021-04-26 08:01] LABS: BILIRUBIN,TOTAL 1.5 mg/dL (0.2-1); TOT PROT 5.4 g/dl (6.4-8.2)
[2021-04-26] MEDS: VASOPRESSIN 40 UNITS in SODIUM CHLORIDE 40 UNITS/100 ML INFUS.BAG IVPB SCH ×2 (08:15→17:00)
[2021-04-26] MEDS: FENTANYL NS IVPB 500 MCG/100 ML BAG IVPB SCH ×2 (08:16→09:27)
[2021-04-26] MEDS: NOREPINEPHRINE BITARTRATE 16,000 MCG in SODIUM CHLORIDE 484 ML IV SCH (08:16)
[2021-04-26] MEDS: DEXMEDETOMIDINE IN 0.9 % NACL 400 MCG/100 ML VIAL IVPB SCH (08:16)
[2021-04-26] MEDS ORDERED: AMIODARONE IN DEXTROSE,ISO-OSM 150 MG/100 ML BAG IVPB ONE (09:15)
[2021-04-26] MEDS ORDERED: DEXTROSE 5%-WATER - 50 ML IVPB ONE (09:20)
[2021-04-26] MEDS ORDERED: cefTRIAXone SODIUM 1 GM VIAL ONE (09:20)
[2021-04-26] MEDS: POLYETHYLENE GLYCOL (HEALTHYLAX) 3350 17 GM PACKET PO SCH (09:28)
[2021-04-26] MEDS: PANTOPRAZOLE SODIUM 40 MG VIAL IVPUSH SCH (09:28)
[2021-04-26] MEDS: CEFTRIAXONE 1 GM in DEXTROSE 5%-WATER - 50 ML IVPB SCH (09:30)
[2021-04-26] MEDS ORDERED: HEPARIN NA (PORCINE) 5,000 UNITS/ML 1ML VIAL IVPUSH PRN ×2 (10:16)
[2021-04-26] MEDS ORDERED: HEPARIN - 25,000 UNIT in SODIUM CHLORIDE 495 ML IV SCH (10:30)
[2021-04-26] MEDS: APIXABAN 5 MG TABLET PO SCH ×2 (12:42→21:19)
[2021-04-26] MEDS: AMIODARONE HCL 200 MG TABLET NGT SCH ×2 (14:48→21:19)
[2021-04-26] MEDS: PHENYLEPHRINE NS PREMIX 50,000 MCG/500 ML BAG CVP SCH (17:49)
[2021-04-26] MEDS ORDERED: ACETAMINOPHEN 1000 MG/100 ML BAG IVPB ONE (19:11)
[2021-04-26] MEDS: CHLORHEXIDINE GLUCONATE 4% CLEANSER FOR DECOLONIZATION TP SCH (21:19)
[2021-04-26 22:19] LABS: PROTHROMBIN TIME (PATIENT) 73.2 SEC (9.7-13.0)
[2021-04-26 22:22] LABS: ACTIVATED PTT 38.6 SECONDS (25.2-36.5)
[2021-04-26 22:54] LABS: INR 6.25 (0.83-1.09)
[2021-04-27] MEDS: DEXMEDETOMIDINE IN 0.9 % NACL 400 MCG/100 ML VIAL IVPB SCH (05:41)
[2021-04-27] MEDS: FENTANYL NS IVPB 500 MCG/100 ML BAG IVPB SCH ×2 (05:42→08:09)
[2021-04-27] MEDS: NOREPINEPHRINE BITARTRATE 16,000 MCG in SODIUM CHLORIDE 484 ML IV SCH ×2 (05:42→09:46)
[2021-04-27] MEDS: FUROSEMIDE 40 MG/4 ML INJECTABLE VIAL IVPUSH SCH ×2 (05:44→14:57)
[2021-04-27 07:01] LABS: HEMATOCRIT 33.1 % (35.4-49); HEMOGLOBIN 10.9 GM/dL (11.7-16.9); MCH 29.7 pg (25.7-33.7); MEAN CELL VOLUME 90.3 fl (80-96); MEAN PLT VOLUME 10.3 fl (7.5-11.1); PLATELET COUNT 98 10^3/uL (134-434); RBC 3.66 M/mm3 (4.00-5.60); RDW 19.5 % (11.9-15.9); WHITE BLOOD COUNT 6.9 K/mm3 (4.0-10.0)
[2021-04-27 07:10] LABS: ACTIVATED PTT 37.4 SECONDS (25.2-36.5)
[2021-04-27 07:28] LABS: ALBUMIN 1.9 g/dl (3.4-5.0)
[2021-04-27 07:30] LABS: BILIRUBIN,DIRECT 1.4 mg/dL (0.0-0.2)
[2021-04-27 07:32] LABS: BLOOD UREA NITROGEN 57.1 mg/dL (7-18); TOT PROT 5.2 g/dl (6.4-8.2)
[2021-04-27 07:33] LABS: ALBUMIN 1.9 g/dl (3.4-5.0); BILIRUBIN,TOTAL 1.8 mg/dL (0.2-1); CALCIUM 7.7 mg/dL (8.5-10.1); MAGNESIUM 1.9 mg/dL (1.8-2.4)
[2021-04-27 07:36] LABS: CREATININE 1.4 mg/dL (0.55-1.3)
[2021-04-27 07:38] LABS: BILIRUBIN,TOTAL 1.8 mg/dL (0.2-1); TOT PROT 5.2 g/dl (6.4-8.2)
[2021-04-27] MEDS ORDERED: DEXTROSE 5%-WATER - 50 ML IVPB ONE (09:14)
[2021-04-27] MEDS ORDERED: cefTRIAXone SODIUM 1 GM VIAL ONE (09:14)
[2021-04-27] MEDS: CEFTRIAXONE 1 GM in DEXTROSE 5%-WATER - 50 ML IVPB SCH (09:21)
[2021-04-27] MEDS: POLYETHYLENE GLYCOL (HEALTHYLAX) 3350 17 GM PACKET PO SCH (09:22)
[2021-04-27] MEDS: AMIODARONE HCL 200 MG TABLET NGT SCH (09:22)
[2021-04-27] MEDS: APIXABAN 5 MG TABLET PO SCH (09:22)
[2021-04-27] MEDS: PANTOPRAZOLE SODIUM 40 MG VIAL IVPUSH SCH (09:22)
[2021-04-27 09:40] LABS: PROTHROMBIN TIME (PATIENT) 67.4 SEC (9.7-13.0)
[2021-04-27 09:51] LABS: INR 5.76 (0.83-1.09)
[2021-04-27] MEDS ORDERED: AMIODARONE HCL 150 MG/3 ML VIAL IVPUSH ONE (10:02)
[2021-04-27] MEDS ORDERED: AMIODARONE IN DEXTROSE 150 MG/100 ML PREMIX BAG IVPB ONE (11:00)
[2021-04-27] MEDS ORDERED: AMIODARONE IN DEXTROSE,ISO-OSM 360 MG/200 ML BAG IVPB ONE (11:00)
[2021-04-27 11:14] VITALS: BMI 32.7
[2021-04-27] MEDS: VASOPRESSIN 40 UNITS in SODIUM CHLORIDE 40 UNITS/100 ML INFUS.BAG IVPB SCH (11:29)
[2021-04-27] MEDS ORDERED: AMIODARONE IN DEXTROSE,ISO-OSM 360 MG/200 ML BAG IVPB SCH (17:00)
[2021-04-27 18:21] LABS: ACTIVATED PTT 40.7 SECONDS (25.2-36.5)
[2021-04-27 18:44] LABS: PROTHROMBIN TIME (PATIENT) 107.7 SEC (9.7-13.0)
[2021-04-27 18:47] LABS: INR 9.6 (0.83-1.09)
[2021-04-27] MEDS: CHLORHEXIDINE GLUCONATE 4% CLEANSER FOR DECOLONIZATION TP SCH (22:02)
[2021-04-27] MEDS: PHENYLEPHRINE NS PREMIX 50,000 MCG/500 ML BAG CVP SCH (22:02)
[2021-04-28] MEDS: FUROSEMIDE 40 MG/4 ML INJECTABLE VIAL IVPUSH SCH (06:46)
[2021-04-28] MEDS: NOREPINEPHRINE BITARTRATE 16,000 MCG in SODIUM CHLORIDE 484 ML IV SCH (06:47)
[2021-04-28] MEDS: VASOPRESSIN 40 UNITS in SODIUM CHLORIDE 40 UNITS/100 ML INFUS.BAG IVPB SCH (06:47)
[2021-04-28] MEDS: DEXMEDETOMIDINE IN 0.9 % NACL 400 MCG/100 ML VIAL IVPB SCH (06:48)
[2021-04-28] MEDS: FENTANYL NS IVPB 500 MCG/100 ML BAG IVPB SCH (06:48)
[2021-04-28 07:12] LABS: HEMOGLOBIN 11.3 GM/dL (11.7-16.9); MCH 29.2 pg (25.7-33.7); MCHC 32.3 g/dl (32.0-35.9); MEAN CELL VOLUME 90.2 fl (80-96); MEAN PLT VOLUME 10.6 fl (7.5-11.1); PLATELET COUNT 111 10^3/uL (134-434); RBC 3.89 M/mm3 (4.00-5.60); RDW 19.5 % (11.9-15.9)
[2021-04-28 07:38] LABS: BLOOD UREA NITROGEN 72.7 mg/dL (7-18); CALCIUM 7.6 mg/dL (8.5-10.1)
[2021-04-28 07:39] LABS: MAGNESIUM 1.9 mg/dL (1.8-2.4)
[2021-04-28 07:42] LABS: CREATININE 1.6 mg/dL (0.55-1.3); PHOSPHOROUS 3.8 mg/dL (2.5-4.9)
[2021-04-28 07:43] LABS: TOT PROT 5.5 g/dl (6.4-8.2)
[2021-04-28 07:45] LABS: BILIRUBIN,TOTAL 1.5 mg/dL (0.2-1)
[2021-04-28 08:33] LABS: INR 9.48 (0.83-1.09); PROTHROMBIN TIME (PATIENT) 111.5 SEC (9.7-13.0)
[2021-04-28 08:52] LABS: ACTIVATED PTT 43.4 SECONDS (25.2-36.5)
[2021-04-28] MEDS ORDERED: MORPHINE SULFATE/0.9% NACL/PF 100 MG/100 ML BAG IVPB SCH (10:30)
[2021-04-28] MEDS ORDERED: DEXTROSE 5%-WATER - 50 ML IVPB ONE (10:36)
[2021-04-28] MEDS ORDERED: cefTRIAXone SODIUM 1 GM VIAL ONE (10:36)
[2021-04-28] MEDS: PANTOPRAZOLE SODIUM 40 MG VIAL IVPUSH SCH (10:40)
[2021-04-28] MEDS: POLYETHYLENE GLYCOL (HEALTHYLAX) 3350 17 GM PACKET PO SCH (10:40)
[2021-04-28] MEDS: CEFTRIAXONE 1 GM in DEXTROSE 5%-WATER - 50 ML IVPB SCH (10:41)
[2021-04-28] MEDS ORDERED: PHYTONADIONE 10 MG/1 ML AMP IVPB ONE (11:45)
[2021-04-28 15:22] VITALS: BP 72/52; PULSE 111; TEMP 93.7
== END 2021-04-28 17:10 | disposition expired | DRG 207 ==
LOC: JER 18:47 → JERBED 22:33 → J4S 04-21 01:27 → JICU 04-21 02:54
PROVIDERS: ADMIT Internal Medicine; ATTEND Internal Medicine
PROC: 06HN33Z Insertion of Infusion Device into Left Femoral Vein, Percutaneous Approach (ICD-10-PCS; principal; 2021-04-21)
PROC: 5A1955Z Respiratory Ventilation, Greater than 96 Consecutive Hours (ICD-10-PCS; 2021-04-21)
PROC: 0BH17EZ Insertion of Endotracheal Airway into Trachea, Via Natural or Artificial Opening (ICD-10-PCS; 2021-04-21)
DX: J96.22 Acute and chronic respiratory failure with hypercapnia (principal); G93.41 Metabolic encephalopathy; J81.0 Acute pulmonary edema; I50.23 Acute on chronic systolic (congestive) heart failure; I13.0 Hypertensive heart and chronic kidney disease with heart failure and stage 1 through stage 4 chronic kidney disease, or unspecified chronic kidney disease; N17.9 Acute kidney failure, unspecified; I24.8 Other forms of acute ischemic heart disease; E87.1 Hypo-osmolality and hyponatremia; I48.19 Other persistent atrial fibrillation; N39.0 Urinary tract infection, site not specified; D68.32 Hemorrhagic disorder due to extrinsic circulating anticoagulants; I48.92 Unspecified atrial flutter; I42.0 Dilated cardiomyopathy; J96.21 Acute and chronic respiratory failure with hypoxia; N18.9 Chronic kidney disease, unspecified; E87.5 Hyperkalemia; J44.9 Chronic obstructive pulmonary disease, unspecified; T45.515A Adverse effect of anticoagulants, initial encounter; E78.5 Hyperlipidemia, unspecified; I35.0 Nonrheumatic aortic (valve) stenosis; I25.10 Atherosclerotic heart disease of native coronary artery without angina pectoris; I27.20 Pulmonary hypertension, unspecified; R41.82 Altered mental status, unspecified; R57.0 Cardiogenic shock; D64.9 Anemia, unspecified; D69.6 Thrombocytopenia, unspecified; E87.70 Fluid overload, unspecified; E66.9 Obesity, unspecified; Z68.32 Body mass index [BMI] 32.0-32.9, adult; R77.8 Other specified abnormalities of plasma proteins; B96.20 Unspecified Escherichia coli [E. coli] as the cause of diseases classified elsewhere; E11.22 Type 2 diabetes mellitus with diabetic chronic kidney disease; Z95.810 Presence of automatic (implantable) cardiac defibrillator; Z95.2 Presence of prosthetic heart valve; Z79.01 Long term (current) use of anticoagulants
CPT/HCPCS: 31500; 36415; 36430; 36600; 71045-TC-FY; 80048; 80053; 80076; 81003; 82550; 82553; 82803; 82962; 83605; 83735; 83880; 84100; 84484; 85025; 85027; 85610; 85730; 86850; 86900; 86901; 87040; 87086; 87186; 93005; 93010; 94002; 94660; 99285-25; C9803; J0282; J1250; J1644; J3490; P9017; U0003; U0005